=== PATIENT | male | born 1960 | race African-American/Black ===

== ENCOUNTER 2016-12-04 10:56 | Inpatient (IN) | payer OTHER ==
[2016-12-04 12:54] VITALS: BMI 26.4
--- NOTE | 2016-12-04 16:31 | HP ---
[id number]: Allergies Allergy/AdvReac Type Severity Reaction Status Date / Time No Known Allergies Allergy Verified 12/04/16 13:53 History of Present Illness: 56 YEAS OLD MALE WITH LONG HISTORY OF ALCOHOL COCAINE NICOTINE DEPENDENCE HAS HYPERTENSION, DIABETES II, AMBULATE WITH CANE, AND SCHIZOPHRENIA IS ADMITTED TO REHAB Exam Limitations: No Limitations - Ebola screening Have you traveled outside of the country in the last 21 days: No Have you had contact with anyone from an Ebola affected area: No Have you been sick,other than usual withdrawal symptoms: No Do you have a fever: No - Review of Systems Constitutional: Weight Stable EENT: reports: Dental Problems (LOWER DENTURE MISSIONG) Respiratory: reports: No Symptoms reported Cardiac: reports: No Symptoms Reported GI: reports: No Symptoms Reported : reports: No Symptoms Reported Musculoskeletal: reports: No Symptoms Reported Integumentary: reports: No Symptoms Reported Neuro: reports: No Symptoms reported, Seizure (2011 HEAD TRAUMA) Endocrine: reports: No Symptoms Reported Hematology: reports: No Symptoms Reported Psychiatric: reports: Judgement Intact, Orientated x3, Anxious, Depressed Other Systems: Reviewed and Negative Patient History - Patient Medical History Hx Anemia: No Hx Asthma: No Hx Chronic Obstructive Pulmonary Disease (COPD): No Hx Cancer: No Hx Cardiac Disorders: No Hx Congestive Heart Failure: No Hx Hypertension: Yes Hx Hypercholesterolemia: Yes Hx Pacemaker: No HX Cerebrovascular Accident: No Hx Seizures: No Hx Dementia: No Hx Diabetes: Yes Hx Gastrointestinal Disorders: No Hx Liver Disease: No Hx Genitourinary Disorders: No Hx Sexually Transmitted Disorders: No Hx Renal Disease (ESRD): No Hx Thyroid Disease: No Hx Human Immunodeficiency Virus (HIV): No Hx Hepatitis C: No Hx Depression: No Hx Suicide Attempt: No Hx Bipolar Disorder: No Hx Schizophrenia: Yes (Bipolar) - Patient Surgical History Past Surgical History: Yes Hx Neurologic Surgery: Yes (1991 RODE INSERED CERVICAL SPINE) Other Surgical History: 1981 SKULL REPAIRED Anesthesia Reaction: No - PPD History Previous Implant?: Yes Documented Results: Negative w/o proof Implanted On Prior [facility] Admission?: No Date: 06/15/14 PPD to be Administered?: Yes - Smoking Cessation Smoking history: Current every day smoker Have you smoked in the past 12 months: Yes Aproximately how many cigarettes per day: 5 Cigars Per Day: 0 Hx Chewing Tobacco Use: No Initiated information on smoking cessation: Yes 'Breaking Loose' booklet given: 12/04/16 - Substance & Tx. History Hx Alcohol Use: Yes Hx Substance Use: Yes Substance Use Type: Alcohol, Cocaine Hx Substance Use Treatment: Yes - Substances Abused Cocaine Route: Smoking Frequency: 3-6 times per week Amount used: GRAM Age of first use: 21 Date of Last Use: 12/03/16 Alcohol Route: Oral Frequency: 3-6 times per week Amount used: [id number] Age of first use: 21 Date of Last Use: 12/04/16 Family Disease History - Family Disease History Family Disease History: Diabetes: Mother, Heart Disease: Father (), Mother, Other: Father, Brother (), Sister () Admission Physical Exam S - Vital Signs Vital Signs: Vital Signs - 24 hr 12/04/16 12:51 Temperature 97 F L Pulse Rate 65 Respiratory 20 Rate Blood Pressure 147/84 - Physical General Appearance: Yes: No Apparent Distress, Nourished, Appropriately Dressed HEENTM: Yes: Hearing grossly Normal, Normal ENT Inspection, Normocephalic, Normal Voice, Other (HISTORY OF SKULL [id number]) Respiratory: Yes: Chest Non-Tender, Lungs Clear, Normal Breath Sounds, No Respiratory Distress, No Accessory Muscle Use Neck: Yes: Supple, Trachea in good position Breast: Yes: Breasts Symetrical Cardiology: Yes: Regular Rhythm, S1, S2, Bradycardia Abdominal: Yes: Non Tender, Soft Genitourinary: Yes: Within Normal Limits Back: Yes: Normal Inspection Musculoskeletal: Yes: full range of Motion, Gait Steady Neurological: Yes: Fully Oriented, Alert, Motor Strength 5/5, Normal Mood/Affect , Normal Response Integumentary: Yes: Warm Lymphatic: Yes: Within Normal Limits - Diagnostic (1) Hyperlipidemia Current Visit: Yes Status: Chronic Qualifiers: Hyperlipidemia type: pure hypercholesterolemia Qualified Code(s): E78.00 - Pure hypercholesterolemia, unspecified; E78.0 - Pure hypercholesterolemia Comment: NO TREATMENT (2) Hypertension Current Visit: Yes Status: Chronic Qualifiers: Hypertension type: essential hypertension Qualified Code(s): I10 - Essential (primary) hypertension Comment: LISINOPRIL NORVASC (3) Nicotine dependence Current Visit: Yes Status: Acute Qualifiers: Nicotine product type: cigarettes Substance use status: in withdrawal Qualified Code(s): F17.213 - Nicotine dependence, cigarettes, with withdrawal (4) Alcohol dependence with uncomplicated withdrawal Current Visit: Yes Status: Acute (5) Cocaine dependence, uncomplicated Current Visit: Yes Status: Acute (6) Diabetes mellitus type II, controlled Current Visit: Yes Status: Chronic Qualifiers: Diabetes mellitus complication status: with neurologic complications Diabetes mellitus complication detail: with mononeuropathy Diabetes mellitus longterm insulin use: with rat exterminator use Qualified Code(s): E11.41 - Type 2 diabetes mellitus with diabetic mononeuropathy; Z79.4 - senior care (current) use of insulin Comment: METFORMIN 500 MG BID ON LANTUS UNABLE TO REMEMBER THE DOSEAGE BGM WITH INSULINE COVERAGE (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 Comment: UNABLE TO REMEMBER THE MEDICATION DILANTIN LEVEL PENDING BEGIN DILANTIN 100 MG (8) Use of cane as ambulatory aid Current Visit: Yes Status: Chronic Cleared for Admission [facility] - Detox or Rehab [facility] Level of Care: Observation Bed Detox Regimen/Protocol: Not Applicable Claeared for Rehab Admission: Yes S Breath Alcohol Content Breath Alcohol Content: 0 Vital Signs - Vital Signs Vital Signs Refused: No Temperature: 97 F Temperature Source: Oral Pulse Rate: 65 Respiratory Rate: 20 Blood Pressure: 147/84 BP Location: Left Arm Blood Pressure Position: Sitting - Height Height: 5 ft 6 in - Weight Weight: 164 lb Weight Measurement Method: Standing Scale Body Mass Index (BMI): 26.4 - Bowel Function Bowel Movement: Yes Urine Drug Screen - Results Drug Screen Negative: No Urine Drug Screen Results: NORMA-Cocaine, BAR-Barbiturates
[2016-12-04] MEDS ORDERED: NICOTINE POLACRILEX 2 MG GUM BC PRN (16:42)
[2016-12-04] MEDS ORDERED: MAGNESIUM CITRATE 300 ML BOTTLE PO PRN (16:42)
[2016-12-04] MEDS ORDERED: guaiFENesin/D-METHORPHAN HB 10 ML UNIT-DOSE CUPS PO PRN (16:42)
[2016-12-04] MEDS ORDERED: ACETAMINOPHEN 325 MG TABLET (FP) PO PRN (16:42)
[2016-12-04] MEDS ORDERED: P-EPHED 60MG/TRIPROLIDI 2.5MG TABLET PO PRN (16:42)
[2016-12-04] MEDS ORDERED: LOPERAMIDE HCL 2 MG CAPSULE PO PRN (16:42)
[2016-12-04] MEDS ORDERED: MAG HYDROX/AL HYDROX/SIMETH 30 ML UNIT-DOSE CUP PO PRN (16:42)
[2016-12-04] MEDS ORDERED: MENTHOL/PHENOL 1 EACH UD MM PRN (16:42)
[2016-12-04] MEDS ORDERED: MAGNESIUM HYDROX 2400MG/30ML ORAL SUSPENSION 30 ML CUP PO PRN (16:42)
--- NOTE | 2016-12-04 19:43 | PN ---
[facility] Progress Note Note: Psychiatry Attending's speech communication instructor note : Called to enter order for Abilify. Chart reviewed.Met briefly with the patient. History taken.Mr Dmitry berman confirmed that he is on abilify 5 mg/day. States that he is diagnosed with Schizophrenia.On abilify since 2014. Gets his psychiatric outpatient services at the [facility] clinic. Denies history of adverse events from that drug.Eager to resume medication. Intervention : Abilify 5 mg po daily.Ordered. Side effects/benefits discussed with patient. He is in agreement with careplan.
[2016-12-04] MEDS: THIAMINE HCL 100 MG TABLET (FP) PO SCH (21:03)
[2016-12-04] MEDS: amLODIPine BESYLATE 5 MG TABLET (FP) PO SCH (21:03)
[2016-12-04] MEDS: INSULIN SLIDING SCALE (NOVOLOG) 1 VIAL SQ SCH (21:06)
[2016-12-04] MEDS ORDERED: INSULIN (NOVOLOG) ASPART 100 UNITS/ML 10ML VIAL ONE (22:01)
[2016-12-04 22:28] LABS: URINE APPEARANCE CLEAR; URINE BILIRUBIN NEGATIVE (NEGATIVE); URINE BLOOD NEGATIVE (NEGATIVE); URINE COLOR YELLOW; URINE GLUCOSE (UA) 3+ (NEGATIVE); URINE KETONE NEGATIVE (NEGATIVE); URINE LEUK ESTERASE NEGATIVE (NEGATIVE); URINE NITRITE NEGATIVE (NEGATIVE); URINE PROTEIN NEGATIVE (NEGATIVE); URINE UROBILINOGEN 2.0 E.U/dl E.U./dl (0.2-1.0)
[2016-12-05] MEDS: metFORMIN HCL 500 MG TABLET (FP) PO SCH ×2 (07:06→16:48)
[2016-12-05] MEDS: INSULIN SLIDING SCALE (NOVOLOG) 1 VIAL SQ SCH ×4 (07:09→21:29)
[2016-12-05] MEDS: NICOTINE 14 MG/24 HOURS TOPICAL PATCH TD SCH (10:03)
[2016-12-05] MEDS: amLODIPine BESYLATE 5 MG TABLET (FP) PO SCH (10:03)
[2016-12-05] MEDS: LISINOPRIL 5 MG TABLET (FP) PO SCH (10:04)
[2016-12-05] MEDS: PRENATAL VITAMINS W/ FOLIC ACID TABLET (FP) PO SCH (10:04)
[2016-12-05] MEDS: ARIPiprazole 5 MG TABLET (FP) PO SCH (10:04)
[2016-12-05] MEDS: PHENYTOIN NA EXTENDED 100 MG CAPSULE (FP) PO SCH (10:04)
[2016-12-05 10:13] LABS: MCH 24.8 pg (25.7-33.7); MCHC 30.9 g/dl (32.0-35.9); MEAN CELL VOLUME 80.2 fl (80-96); PLATELET COUNT 235 K/MM3 (134-434); RDW 15.5 % (11.9-15.9); WHITE BLOOD COUNT 9.4 K/mm3 (4.0-10.0)
[2016-12-05 10:30] LABS: ALBUMIN 3.7 g/dl (3.4-5.0); ALK PHOS 170 U/L (45-117); ANION GAP 9 (8-16); BILIRUBIN,TOTAL 0.4 mg/dL (0.2-1.0); CALCIUM 9.3 mg/dL (8.5-10.1); CO2 29 mmol/L (21-32); COCKROFT - GAULT 108.48; CREATININE 0.8 mg/dL (0.7-1.3); GLUCOSE,RANDOM 281 mg/dL (74-106); SGOT/AST 12 U/L (15-37); SGPT/ALT 20 U/L (12-78); TOT PROT 7.5 g/dl (6.4-8.2)
--- NOTE | 2016-12-05 16:09 | EKG ---
Test Reason : Blood Pressure : / mmHG Vent. Rate : 069 BPM Atrial Rate : 069 BPM P-R Int : 120 ms QRS Dur : 086 ms QT Int : 386 ms P-R-T Axes : 052 059 057 degrees QTc Int : 413 ms NORMAL SINUS RHYTHM NORMAL ECG NO PREVIOUS ECGS AVAILABLE Confirmed by TERRI DOCKERY MD ([id number]) on 12/05/2016 4:08:57 PM Referred By: Confirmed By:TERRI DOCKERY MD
[2016-12-05] MEDS ORDERED: INSULIN (NOVOLOG) ASPART 100 UNITS/ML 10ML VIAL ONE ×2 (16:48→21:28)
[2016-12-05] MEDS: THIAMINE HCL 100 MG TABLET (FP) PO SCH (21:28)
[2016-12-05] MEDS: diphenhydrAMINE HCL 50 MG CAPSULE PO PRN (21:28)
[2016-12-05] MEDS: hydrOXYzine PAMOATE 50 MG CAPSULE (FP) PO PRN (23:40)
[2016-12-06] MEDS: metFORMIN HCL 500 MG TABLET (FP) PO SCH ×2 (06:26→16:33)
[2016-12-06] MEDS: INSULIN SLIDING SCALE (NOVOLOG) 1 VIAL SQ SCH ×4 (06:27→21:49)
[2016-12-06] MEDS: PRENATAL VITAMINS W/ FOLIC ACID TABLET (FP) PO SCH (09:55)
[2016-12-06] MEDS: LISINOPRIL 5 MG TABLET (FP) PO SCH (09:55)
[2016-12-06] MEDS: NICOTINE 14 MG/24 HOURS TOPICAL PATCH TD SCH (09:55)
[2016-12-06] MEDS: ARIPiprazole 5 MG TABLET (FP) PO SCH (09:55)
[2016-12-06] MEDS: amLODIPine BESYLATE 5 MG TABLET (FP) PO SCH (09:55)
[2016-12-06] MEDS: PHENYTOIN NA EXTENDED 100 MG CAPSULE (FP) PO SCH (09:55)
[2016-12-06] MEDS ORDERED: INSULIN (NOVOLOG) ASPART 100 UNITS/ML 10ML VIAL ONE ×3 (11:22→21:48)
[2016-12-06] MEDS: THIAMINE HCL 100 MG TABLET (FP) PO SCH (21:47)
[2016-12-06] MEDS: hydrOXYzine PAMOATE 50 MG CAPSULE (FP) PO PRN (21:47)
[2016-12-07] MEDS: diphenhydrAMINE HCL 50 MG CAPSULE PO PRN ×2 (00:24→21:03)
[2016-12-07] MEDS: INSULIN SLIDING SCALE (NOVOLOG) 1 VIAL SQ SCH ×4 (07:09→21:03)
[2016-12-07] MEDS ORDERED: INSULIN (NOVOLOG) ASPART 100 UNITS/ML 10ML VIAL ONE ×4 (07:10→22:23)
[2016-12-07] MEDS: metFORMIN HCL 500 MG TABLET (FP) PO SCH ×2 (07:10→17:01)
--- NOTE | 2016-12-07 07:42 | HP ---
Psychiatrist Admission - Data Date of interview: 12/07/16 Admission source: Friend(Casey Kulkarni) Identifying data: This is the second [facility] admission for this 56 years old single Black male, unemployed on SSI, homeless Medical History: Significant for HTN, Hyperlipidemia, type 2 DM and neurosurgery (frature cervical spine & repair of skull). Smokes 5 cigarettes daily Psychiatric History: Reports history of Schizophrenia diagnosed at age 21 and has had 3 previous psychiatric hospitalizations all at [facility]. Last one was in 2012 for hearing voices. Reports that he attended [facility] for psychiatric services up to 2 months ago and he was prescribed Abilify 5 mg po HS and Benadryl 50 mg po HS. Reports sleeping poorly and requests to have Seroquel ordered. Denies history of suicidal/homicidal attempt Physical/Sexual Abuse/Trauma History: Denies history of physical/sexual abuse.Denies history of DV relationship Additional Comment: Reports history of multiple arrests including 2 felony convictions. Just completed probation on 10/12/16 Vital Signs: Vital Signs - 24 hr 12/06/16 12/07/16 12/07/16 10:30 03:30 07:08 Temperature 97.4 F L Pulse Rate 82 82 Respiratory 18 18 18 Rate Blood Pressure 126/88 137/91 Allergies/Adverse Reactions: Allergies Allergy/AdvReac Type Severity Reaction Status Date / Time No Known Allergies Allergy Verified 12/04/16 13:53 Date of last physical exam: 12/04/16 Concur with the findings of this exam: Yes - Substance Abuse/Tx History Hx Alcohol Use: Yes Hx Substance Use: Yes Substance Use Type: Alcohol (Started drinking alcohol at age 21, consumes 4x 40oz of beer 3-6 times weekly.Last drink on 12/04/16), Cocaine (Started smoking crack cocaine at age 21, consumes one gram 3-6 times weekly. Last smoked on ) Hx Substance Use Treatment: Yes ( one inpt rehab @ [facility]) - Admission Criteria Previous failed treatment: No Poor recovery environment: Yes Comorbidities: Yes Lacks judgement: Yes Mental Status Exam - Mental Status Exam Alert and Oriented to: Time, Place, Person Cognitive Function: Fair Patient Appearance: Well Groomed Mood: Hopeful, Euthymic Patient Behavior: Cooperative Speech Pattern: Clear Voice Loudness: Normal Thought Process: Intact Thought Disorder: Not Present Hallucinations: Denies Suicidal Ideation: Denies Homicidal Ideation: Denies Insight/Judgement: Fair Sleep: Poorly Appetite: Good Muscle strength/Tone: Normal Gait/Station: Normal Psychiatric Findings - Problem List ([place] 1, 2,3) (1) Alcohol dependence with uncomplicated withdrawal Current Visit: Yes Status: Acute (2) Cocaine dependence, uncomplicated Current Visit: Yes Status: Acute (3) Nicotine dependence Current Visit: Yes Status: Acute Qualifiers: Nicotine product type: cigarettes Substance use status: in withdrawal Qualified Code(s): F17.213 - Nicotine dependence, cigarettes, with withdrawal (4) Schizophrenia, undifferentiated type, subchronic Current Visit: No Status: Acute (5) Diabetes mellitus type II, controlled Current Visit: Yes Status: Chronic Qualifiers: Diabetes mellitus complication status: with neurologic complications Diabetes mellitus complication detail: with mononeuropathy Diabetes mellitus long-term insulin use: with terminal gauger supervisor use Qualified Code(s): 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 - Type 2 diabetes mellitus with diabetic mononeuropathy; Z79.4 - continuous churn buttermaker (current) use of insulin Comment: METFORMIN 500 MG BID ON LANTUS UNABLE TO REMEMBER THE DOSEAGE BGM WITH INSULINE COVERAGE (6) Hyperlipidemia Current Visit: Yes Status: Chronic Qualifiers: Hyperlipidemia type: pure hypercholesterolemia Qualified Code(s): E78.00 - Pure hypercholesterolemia, unspecified; E78.0 - Pure hypercholesterolemia Comment: NO TREATMENT (7) Hypertension Current Visit: Yes Status: Chronic Qualifiers: Hypertension type: essential hypertension Qualified Code(s): I10 - Essential (primary) hypertension Comment: LISINOPRIL NORVASC - Initial Treatment Plan Initial Treatment Plan: 1) Continue Abilify 10 mg po daily. 2) Start Seroquel 100 mg po HS. 3) Monitor progress
[2016-12-07] MEDS: PHENYTOIN NA EXTENDED 100 MG CAPSULE (FP) PO SCH (10:27)
[2016-12-07] MEDS: LISINOPRIL 5 MG TABLET (FP) PO SCH (10:27)
[2016-12-07] MEDS: amLODIPine BESYLATE 5 MG TABLET (FP) PO SCH (10:27)
[2016-12-07] MEDS: ARIPiprazole 5 MG TABLET (FP) PO SCH (10:27)
[2016-12-07] MEDS: NICOTINE 14 MG/24 HOURS TOPICAL PATCH TD SCH (10:28)
[2016-12-07] MEDS: PRENATAL VITAMINS W/ FOLIC ACID TABLET (FP) PO SCH (10:28)
[2016-12-07] MEDS: THIAMINE HCL 100 MG TABLET (FP) PO SCH (21:03)
[2016-12-07] MEDS: QUEtiapine FUMARATE 100 MG TABLET (FP) PO SCH (21:03)
[2016-12-08] MEDS: INSULIN SLIDING SCALE (NOVOLOG) 1 VIAL SQ SCH ×3 (07:11→23:38)
[2016-12-08] MEDS: metFORMIN HCL 500 MG TABLET (FP) PO SCH ×2 (07:11→16:48)
[2016-12-08] MEDS ORDERED: INSULIN (NOVOLOG) ASPART 100 UNITS/ML 10ML VIAL ONE ×2 (07:14→11:33)
[2016-12-08] MEDS: ARIPiprazole 5 MG TABLET (FP) PO SCH (10:34)
[2016-12-08] MEDS: LISINOPRIL 5 MG TABLET (FP) PO SCH (10:34)
[2016-12-08] MEDS: PHENYTOIN NA EXTENDED 100 MG CAPSULE (FP) PO SCH (10:34)
[2016-12-08] MEDS: PRENATAL VITAMINS W/ FOLIC ACID TABLET (FP) PO SCH (10:34)
[2016-12-08] MEDS: amLODIPine BESYLATE 5 MG TABLET (FP) PO SCH (10:35)
[2016-12-08] MEDS: NICOTINE 14 MG/24 HOURS TOPICAL PATCH TD SCH (10:35)
[2016-12-08] MEDS: THIAMINE HCL 100 MG TABLET (FP) PO SCH (21:45)
[2016-12-08] MEDS: QUEtiapine FUMARATE 100 MG TABLET (FP) PO SCH (21:45)
[2016-12-08] MEDS: hydrOXYzine PAMOATE 50 MG CAPSULE (FP) PO PRN (21:45)
[2016-12-09] MEDS: metFORMIN HCL 500 MG TABLET (FP) PO SCH ×2 (07:13→16:58)
[2016-12-09] MEDS: INSULIN SLIDING SCALE (NOVOLOG) 1 VIAL SQ SCH ×2 (07:13→16:57)
[2016-12-09] MEDS: PRENATAL VITAMINS W/ FOLIC ACID TABLET (FP) PO SCH (09:46)
[2016-12-09] MEDS: ARIPiprazole 5 MG TABLET (FP) PO SCH (09:46)
[2016-12-09] MEDS: amLODIPine BESYLATE 5 MG TABLET (FP) PO SCH (09:46)
[2016-12-09] MEDS: NICOTINE 14 MG/24 HOURS TOPICAL PATCH TD SCH (09:46)
[2016-12-09] MEDS: LISINOPRIL 5 MG TABLET (FP) PO SCH (09:46)
[2016-12-09] MEDS: PHENYTOIN NA EXTENDED 100 MG CAPSULE (FP) PO SCH (09:46)
--- NOTE | 2016-12-09 11:02 | PN ---
Psychiatric Progress Note Vital Signs: Vital Signs Period Temp Pulse Resp BP Sys/Cabrera Pulse Ox Last 24 Hr 98.9 F 113-118 18-20 113-122/67-78 Date of Session: 12/09/16 Chief Complaint:: Insomnia HPI: Patient addressing Alcohol and Cocaine Dependence comorbid with Nicotine Dependence comorbid with Nicotine Dependence and Schizophrenia, Undifferentiated type ROS: Type 2 DM, HTN, Hyperlipidemia Current Medications: Active Medications Generic Name Dose Route Start Last Admin Trade Name Freq PRN Reason Stop Dose Admin Acetaminophen 650 mg 12/04/16 16:42 Tylenol - PO Q4H PRN PAIN Al Hydroxide/Mg Hydroxide 30 ml 12/04/16 16:42 Mylanta Oral Suspension - PO Q6H PRN DYSPEPSIA Amlodipine Besylate 5 mg 12/04/16 17:00 12/09/16 09:46 Norvasc - PO 5 mg DAILY MARTHA Administration Aripiprazole 5 mg 12/05/16 10:00 12/09/16 09:46 Abilify PO 5 mg DAILY MARTHA Administration Diphenhydramine HCl 50 mg 12/04/16 16:42 12/07/16 21:03 Benadryl - PO 50 mg HSMR1 PRN Administration INSOMNIA Eucalyptus/Menthol/Phenol/Sorbitol 1 each 12/04/16 16:42 Cepastat Lozenge - MM Q4H PRN SORE THROAT Guaifenesin 10 ml 12/04/16 16:42 Robitussin Dm - PO Q6H PRN COUGH Hydroxyzine Pamoate 50 mg 12/04/16 16:42 12/08/16 21:45 Vistaril - PO 50 mg Q4H PRN Administration AGITATION Ibuprofen 400 mg 12/04/16 16:42 Motrin - PO Q6H PRN SEVERE PAIN Insulin Aspart 1 vial 12/08/16 16:30 12/09/16 07:13 Novolog Vial Sliding Scale - SQ Not Given [facility] Protocol Lisinopril 5 mg 12/05/16 10:00 12/09/16 09:46 Prinivil PO 5 mg DAILY MARTHA Administration Loperamide HCl 4 mg 12/04/16 16:42 Imodium - PO Q6H PRN DIARRHEA Magnesium Citrate 300 ml 12/04/16 16:42 Citroma - PO Q48H PRN CONSTIPATION Magnesium Hydroxide 30 ml 12/04/16 16:42 Milk Of Magnesia - PO DAILY PRN CONSTIPATION Metformin HCl 500 mg 12/05/16 07:00 12/09/16 07:13 Glucophage - PO 500 mg BID@0700,1630 MARTHA Administration Nicotine 14 mg 12/05/16 10:00 12/09/16 09:46 Nicoderm Patch - TD Not Given DAILY MARTHA Nicotine Polacrilex 2 mg 12/04/16 16:42 Nicorette Gum - BC Q2H PRN NICOTINE REPLACEMENT RX Phenytoin Sodium 100 mg 12/05/16 10:00 12/09/16 09:46 Dilantin - PO 100 mg DAILY MARTHA Administration Multivit/Folic Acid/Iron 1 tab 12/05/16 10:00 12/09/16 09:46 Vitamins ([facility]) - PO 1 tab DAILY MARTHA Administration Pseudoephedrine/Triprolidine 1 combo 12/04/16 16:42 Actifed - PO TID PRN NASAL CONGESTION Quetiapine Fumarate 100 mg 12/07/16 22:00 12/08/16 21:45 Seroquel - PO 100 mg HS MARTHA Administration Thiamine HCl 100 mg 12/04/16 22:00 12/08/16 21:45 Vitamin B1 - PO 100 mg HS MARTHA Administration Current Side Effect: No Lab tests ordered: Yes Lab tests reviewed: Yes Provider note:: Patient continue to report experiencing difficulty to sleep despite taking Seroqurel 100 mg at bedtime. Last night at nursing round sleep monitoring, he was awake at 0:30, 1:30, 2:30 & 5:30; he was asleep only at 3:30 , 4:30 Total face to face time:: 25 Mental Status Exam - Mental Status Exam Alert and Oriented to: Time, Place, Person Cognitive Function: Fair Patient Appearance: Well Groomed Mood: Hopeful, Euthymic Affect: Blunted Patient Behavior: Cooperative Speech Pattern: Clear, Artificially Ventilated Thought Process: Intact Thought Disorder: Not Present Hallucinations: Denies Suicidal Ideation: Denies Homicidal Ideation: Denies Insight/Judgement: Fair Sleep: Poorly Appetite: Good Muscle strength/Tone: Normal Gait/Station: Normal Psychiatric Treatment Plan - Problem List (1) Alcohol dependence with uncomplicated withdrawal Current Visit: Yes (2) Cocaine dependence, uncomplicated Current Visit: Yes (3) Nicotine dependence Current Visit: Yes Qualifiers: Nicotine product type: cigarettes Substance use status: in withdrawal Qualified Code(s): F17.213 - Nicotine dependence, cigarettes, with withdrawal (4) Schizophrenia, undifferentiated type, subchronic Current Visit: No (5) Diabetes mellitus type II, controlled Current Visit: Yes Qualifiers: Diabetes mellitus complication status: with neurologic complications Diabetes mellitus complication detail: with mononeuropathy Diabetes mellitus ad terminal makeup operator insulin use: with custodial use Qualified Code(s): 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 - Type 2 diabetes mellitus with diabetic mononeuropathy; Z79.4 - parts counterman (current) use of insulin Comment: METFORMIN 500 MG BID ON LANTUS UNABLE TO REMEMBER THE DOSEAGE BGM WITH INSULINE COVERAGE (6) Hyperlipidemia Current Visit: Yes Qualifiers: Hyperlipidemia type: pure hypercholesterolemia Qualified Code(s): E78.00 - Pure hypercholesterolemia, unspecified; E78.0 - Pure hypercholesterolemia Comment: NO TREATMENT (7) Hypertension Current Visit: Yes Qualifiers: Hypertension type: essential hypertension Qualified Code(s): I10 - Essential (primary) hypertension Comment: LISINOPRIL NORVASC Initial treatment plan: 1) Discontinue Seroquel 100 mg po HS. 2) Start Seroquel 200 mg po HS. 3) Monitor progress
[2016-12-09] MEDS ORDERED: PT OWN MED DRAWER 7, Y5N ONE (19:16)
[2016-12-09] MEDS: THIAMINE HCL 100 MG TABLET (FP) PO SCH (21:19)
[2016-12-09] MEDS: QUEtiapine FUMARATE 100 MG TABLET (FP) PO SCH (21:19)
[2016-12-09] MEDS: QUEtiapine FUMARATE 200 MG TABLET PO SCH (21:21)
[2016-12-10] MEDS: INSULIN SLIDING SCALE (NOVOLOG) 1 VIAL SQ SCH ×2 (06:02→16:53)
[2016-12-10] MEDS ORDERED: INSULIN (NOVOLOG) ASPART 100 UNITS/ML 10ML VIAL ONE ×2 (06:03→16:51)
[2016-12-10] MEDS: metFORMIN HCL 500 MG TABLET (FP) PO SCH ×2 (06:03→16:52)
[2016-12-10] MEDS: hydrOXYzine PAMOATE 50 MG CAPSULE (FP) PO PRN ×2 (09:46→21:23)
[2016-12-10] MEDS: LISINOPRIL 5 MG TABLET (FP) PO SCH (09:46)
[2016-12-10] MEDS: ARIPiprazole 5 MG TABLET (FP) PO SCH (09:46)
[2016-12-10] MEDS: PRENATAL VITAMINS W/ FOLIC ACID TABLET (FP) PO SCH (09:46)
[2016-12-10] MEDS: PHENYTOIN NA EXTENDED 100 MG CAPSULE (FP) PO SCH (09:47)
[2016-12-10] MEDS: amLODIPine BESYLATE 5 MG TABLET (FP) PO SCH (09:47)
[2016-12-10] MEDS: NICOTINE 14 MG/24 HOURS TOPICAL PATCH TD SCH (09:47)
[2016-12-10] MEDS: QUEtiapine FUMARATE 200 MG TABLET PO SCH (21:23)
[2016-12-10] MEDS: THIAMINE HCL 100 MG TABLET (FP) PO SCH (21:23)
[2016-12-11] MEDS ORDERED: INSULIN (NOVOLOG) ASPART 100 UNITS/ML 10ML VIAL ONE ×2 (07:09→16:44)
[2016-12-11] MEDS: metFORMIN HCL 500 MG TABLET (FP) PO SCH ×2 (07:09→16:45)
[2016-12-11] MEDS: INSULIN SLIDING SCALE (NOVOLOG) 1 VIAL SQ SCH ×2 (07:10→16:48)
[2016-12-11] MEDS: amLODIPine BESYLATE 5 MG TABLET (FP) PO SCH (10:11)
[2016-12-11] MEDS: PHENYTOIN NA EXTENDED 100 MG CAPSULE (FP) PO SCH (10:11)
[2016-12-11] MEDS: NICOTINE 14 MG/24 HOURS TOPICAL PATCH TD SCH (10:11)
[2016-12-11] MEDS: PRENATAL VITAMINS W/ FOLIC ACID TABLET (FP) PO SCH (10:11)
[2016-12-11] MEDS: LISINOPRIL 5 MG TABLET (FP) PO SCH (10:11)
[2016-12-11] MEDS: ARIPiprazole 5 MG TABLET (FP) PO SCH (10:11)
[2016-12-11] MEDS: hydrOXYzine PAMOATE 50 MG CAPSULE (FP) PO PRN (21:24)
[2016-12-11] MEDS: QUEtiapine FUMARATE 200 MG TABLET PO SCH (21:24)
[2016-12-11] MEDS: THIAMINE HCL 100 MG TABLET (FP) PO SCH (21:24)
[2016-12-12] MEDS: metFORMIN HCL 500 MG TABLET (FP) PO SCH ×2 (07:20→16:50)
[2016-12-12] MEDS ORDERED: INSULIN (NOVOLOG) ASPART 100 UNITS/ML 10ML VIAL ONE ×2 (07:20→17:02)
[2016-12-12] MEDS: INSULIN SLIDING SCALE (NOVOLOG) 1 VIAL SQ SCH ×2 (07:20→16:52)
[2016-12-12] MEDS: PRENATAL VITAMINS W/ FOLIC ACID TABLET (FP) PO SCH (09:56)
[2016-12-12] MEDS: ARIPiprazole 5 MG TABLET (FP) PO SCH (09:56)
[2016-12-12] MEDS: amLODIPine BESYLATE 5 MG TABLET (FP) PO SCH (09:56)
[2016-12-12] MEDS: PHENYTOIN NA EXTENDED 100 MG CAPSULE (FP) PO SCH (09:56)
[2016-12-12] MEDS: LISINOPRIL 5 MG TABLET (FP) PO SCH (09:56)
[2016-12-12] MEDS: NICOTINE 14 MG/24 HOURS TOPICAL PATCH TD SCH (09:57)
[2016-12-12] MEDS: IBUPROFEN 400 MG TABLET (FP) PO PRN (12:05)
[2016-12-12] MEDS: QUEtiapine FUMARATE 200 MG TABLET PO SCH (21:45)
[2016-12-12] MEDS: diphenhydrAMINE HCL 50 MG CAPSULE PO PRN (21:45)
[2016-12-12] MEDS: THIAMINE HCL 100 MG TABLET (FP) PO SCH (21:45)
[2016-12-13] MEDS: metFORMIN HCL 500 MG TABLET (FP) PO SCH ×2 (07:16→17:00)
[2016-12-13] MEDS: INSULIN SLIDING SCALE (NOVOLOG) 1 VIAL SQ SCH ×2 (07:16→17:01)
[2016-12-13] MEDS: ARIPiprazole 5 MG TABLET (FP) PO SCH (09:55)
[2016-12-13] MEDS: PRENATAL VITAMINS W/ FOLIC ACID TABLET (FP) PO SCH (09:55)
[2016-12-13] MEDS: LISINOPRIL 5 MG TABLET (FP) PO SCH (09:55)
[2016-12-13] MEDS: amLODIPine BESYLATE 5 MG TABLET (FP) PO SCH (09:56)
[2016-12-13] MEDS: PHENYTOIN NA EXTENDED 100 MG CAPSULE (FP) PO SCH (09:56)
[2016-12-13] MEDS: NICOTINE 14 MG/24 HOURS TOPICAL PATCH TD SCH (09:57)
[2016-12-13] MEDS ORDERED: INSULIN (NOVOLOG) ASPART 100 UNITS/ML 10ML VIAL ONE (17:10)
[2016-12-13] MEDS: diphenhydrAMINE HCL 50 MG CAPSULE PO PRN (21:20)
[2016-12-13] MEDS: THIAMINE HCL 100 MG TABLET (FP) PO SCH (21:20)
[2016-12-13] MEDS: QUEtiapine FUMARATE 200 MG TABLET PO SCH (21:20)
[2016-12-14] MEDS ORDERED: INSULIN (NOVOLOG) ASPART 100 UNITS/ML 10ML VIAL ONE ×2 (06:14→17:06)
[2016-12-14] MEDS: metFORMIN HCL 500 MG TABLET (FP) PO SCH ×2 (06:15→16:52)
[2016-12-14] MEDS: INSULIN SLIDING SCALE (NOVOLOG) 1 VIAL SQ SCH ×2 (07:15→16:54)
[2016-12-14] MEDS: NICOTINE 14 MG/24 HOURS TOPICAL PATCH TD SCH (09:50)
[2016-12-14] MEDS: PRENATAL VITAMINS W/ FOLIC ACID TABLET (FP) PO SCH (09:50)
[2016-12-14] MEDS: PHENYTOIN NA EXTENDED 100 MG CAPSULE (FP) PO SCH (09:50)
[2016-12-14] MEDS: LISINOPRIL 5 MG TABLET (FP) PO SCH (09:50)
[2016-12-14] MEDS: amLODIPine BESYLATE 5 MG TABLET (FP) PO SCH (09:50)
[2016-12-14] MEDS: ARIPiprazole 5 MG TABLET (FP) PO SCH (09:50)
[2016-12-14] MEDS ORDERED: PT OWN MED DRAWER 7, Y5N ONE (14:21)
[2016-12-14] MEDS: diphenhydrAMINE HCL 50 MG CAPSULE PO PRN (21:22)
[2016-12-14] MEDS: QUEtiapine FUMARATE 200 MG TABLET PO SCH (21:22)
[2016-12-14] MEDS: THIAMINE HCL 100 MG TABLET (FP) PO SCH (21:22)
[2016-12-15] MEDS: metFORMIN HCL 500 MG TABLET (FP) PO SCH ×2 (07:11→16:30)
[2016-12-15] MEDS ORDERED: INSULIN (NOVOLOG) ASPART 100 UNITS/ML 10ML VIAL ONE ×2 (07:12→16:30)
[2016-12-15] MEDS: INSULIN SLIDING SCALE (NOVOLOG) 1 VIAL SQ SCH ×2 (07:12→16:31)
[2016-12-15] MEDS: LISINOPRIL 5 MG TABLET (FP) PO SCH (09:59)
[2016-12-15] MEDS: amLODIPine BESYLATE 5 MG TABLET (FP) PO SCH (09:59)
[2016-12-15] MEDS: PRENATAL VITAMINS W/ FOLIC ACID TABLET (FP) PO SCH (09:59)
[2016-12-15] MEDS: NICOTINE 14 MG/24 HOURS TOPICAL PATCH TD SCH (09:59)
[2016-12-15] MEDS: ARIPiprazole 5 MG TABLET (FP) PO SCH (09:59)
[2016-12-15] MEDS: PHENYTOIN NA EXTENDED 100 MG CAPSULE (FP) PO SCH (09:59)
[2016-12-15] MEDS: hydrOXYzine PAMOATE 50 MG CAPSULE (FP) PO PRN (21:46)
[2016-12-15] MEDS: QUEtiapine FUMARATE 200 MG TABLET PO SCH (21:46)
[2016-12-15] MEDS: THIAMINE HCL 100 MG TABLET (FP) PO SCH (21:46)
[2016-12-16] MEDS: metFORMIN HCL 500 MG TABLET (FP) PO SCH ×2 (07:12→16:38)
[2016-12-16] MEDS ORDERED: INSULIN (NOVOLOG) ASPART 100 UNITS/ML 10ML VIAL ONE ×2 (07:12→16:38)
[2016-12-16] MEDS: INSULIN SLIDING SCALE (NOVOLOG) 1 VIAL SQ SCH ×2 (07:12→16:39)
[2016-12-16] MEDS: ARIPiprazole 5 MG TABLET (FP) PO SCH (10:07)
[2016-12-16] MEDS: PHENYTOIN NA EXTENDED 100 MG CAPSULE (FP) PO SCH (10:07)
[2016-12-16] MEDS: amLODIPine BESYLATE 5 MG TABLET (FP) PO SCH (10:07)
[2016-12-16] MEDS: LISINOPRIL 5 MG TABLET (FP) PO SCH (10:07)
[2016-12-16] MEDS: PRENATAL VITAMINS W/ FOLIC ACID TABLET (FP) PO SCH (10:07)
[2016-12-16] MEDS: NICOTINE 14 MG/24 HOURS TOPICAL PATCH TD SCH (10:08)
[2016-12-16] MEDS: hydrOXYzine PAMOATE 50 MG CAPSULE (FP) PO PRN (22:10)
[2016-12-16] MEDS: THIAMINE HCL 100 MG TABLET (FP) PO SCH (22:10)
[2016-12-16] MEDS: QUEtiapine FUMARATE 200 MG TABLET PO SCH (22:10)
[2016-12-17] MEDS: INSULIN SLIDING SCALE (NOVOLOG) 1 VIAL SQ SCH ×2 (07:05→16:34)
[2016-12-17] MEDS ORDERED: INSULIN (NOVOLOG) ASPART 100 UNITS/ML 10ML VIAL ONE ×2 (07:05→16:32)
[2016-12-17] MEDS: metFORMIN HCL 500 MG TABLET (FP) PO SCH ×2 (07:06→16:33)
[2016-12-17] MEDS: PRENATAL VITAMINS W/ FOLIC ACID TABLET (FP) PO SCH (09:58)
[2016-12-17] MEDS: PHENYTOIN NA EXTENDED 100 MG CAPSULE (FP) PO SCH (09:59)
[2016-12-17] MEDS: ARIPiprazole 5 MG TABLET (FP) PO SCH (09:59)
[2016-12-17] MEDS: LISINOPRIL 5 MG TABLET (FP) PO SCH (09:59)
[2016-12-17] MEDS: amLODIPine BESYLATE 5 MG TABLET (FP) PO SCH (09:59)
[2016-12-17] MEDS: NICOTINE 14 MG/24 HOURS TOPICAL PATCH TD SCH (09:59)
--- NOTE | 2016-12-17 14:44 | PN ---
Psychiatric Progress Note Vital Signs: Vital Signs Period Temp Pulse Resp BP Sys/Cabrera Pulse Ox Last 24 Hr 98.2 F 112-119 18-20 102-103/71-71 Date of Session: 12/17/16 Chief Complaint:: " I want something to help me with craving for alcohol" HPI: Patient addressing Alcohol and Cocaine Dependence comorbid with Nicotine Dependence and Undifferentiated Schizophrenia ROS: Type 2 DM, HTN, Hyperlipidemia Current Medications: Active Medications Generic Name Dose Route Start Last Admin Trade Name Freq PRN Reason Stop Dose Admin Acetaminophen 650 mg 12/04/16 16:42 Tylenol - PO Q4H PRN PAIN Al Hydroxide/Mg Hydroxide 30 ml 12/04/16 16:42 Mylanta Oral Suspension - PO Q6H PRN DYSPEPSIA Amlodipine Besylate 5 mg 12/04/16 17:00 12/17/16 09:59 Norvasc - PO 5 mg DAILY MARTHA Administration Aripiprazole 5 mg 12/05/16 10:00 12/17/16 09:59 Abilify PO 5 mg DAILY MARTHA Administration Diphenhydramine HCl 50 mg 12/04/16 16:42 12/14/16 21:22 Benadryl - PO 50 mg HSMR1 PRN Administration INSOMNIA Eucalyptus/Menthol/Phenol/Sorbitol 1 each 12/04/16 16:42 Cepastat Lozenge - MM Q4H PRN SORE THROAT Guaifenesin 10 ml 12/04/16 16:42 Robitussin Dm - PO Q6H PRN COUGH Hydroxyzine Pamoate 50 mg 12/04/16 16:42 12/16/16 22:10 Vistaril - PO 50 mg Q4H PRN Administration AGITATION Ibuprofen 400 mg 12/04/16 16:42 12/12/16 12:05 Motrin - PO 400 mg Q6H PRN Administration SEVERE PAIN Insulin Aspart 1 vial 12/08/16 16:30 12/17/16 07:05 Novolog Vial Sliding Scale - SQ 2 units BIDAC MARTHA Administration Protocol Lisinopril 5 mg 12/05/16 10:00 12/17/16 09:59 Prinivil PO 5 mg DAILY MARTHA Administration Loperamide HCl 4 mg 12/04/16 16:42 Imodium - PO Q6H PRN DIARRHEA Magnesium Citrate 300 ml 12/04/16 16:42 Citroma - PO Q48H PRN CONSTIPATION Magnesium Hydroxide 30 ml 12/04/16 16:42 Milk Of Magnesia - PO DAILY PRN CONSTIPATION Metformin HCl 500 mg 12/05/16 07:00 12/17/16 07:06 Glucophage - PO 500 mg BID@0700,1630 MARTHA Administration Nicotine 14 mg 12/05/16 10:00 12/17/16 09:59 Nicoderm Patch - TD 14 mg DAILY MARTHA Administration Nicotine Polacrilex 2 mg 12/04/16 16:42 12/15/16 10:00 Nicorette Gum - BC 2 mg Q2H PRN Administration NICOTINE REPLACEMENT RX Phenytoin Sodium 100 mg 12/05/16 10:00 12/17/16 09:59 Dilantin - PO 100 mg DAILY MARTHA Administration Multivit/Folic Acid/Iron 1 tab 12/05/16 10:00 12/17/16 09:58 Vitamins ([facility]) - PO 1 tab DAILY MARTHA Administration Pseudoephedrine/Triprolidine 1 combo 12/04/16 16:42 Actifed - PO TID PRN NASAL CONGESTION Quetiapine Fumarate 200 mg 12/09/16 22:00 12/16/16 22:10 Seroquel - PO 200 mg HS MARTHA Administration Thiamine HCl 100 mg 12/04/16 22:00 12/16/16 22:10 Vitamin B1 - PO 100 mg HS MARTHA Administration Medication(s) Change(s): Start Naltrexone 50 mg po daily Current Side Effect: No Lab tests ordered: Yes Lab tests reviewed: Yes Provider note:: Patient requests medication to help minimize his craving for alcohol. Two medications to that effect, Naltrexone and Acamprosate were discussed with patient. He has opted to take The opoid antagonist Naltrexone due to convenience of administration making compliance easier. His LFT'S are WNL. He said that he has never used any type of opiate medication like percocet , oxycontin etc. He was warned against using any of these substances with Naltrexone Total face to face time:: 25 Mental Status Exam - Mental Status Exam Alert and Oriented to: Time, Place, Person Cognitive Function: Fair Patient Appearance: Well Groomed Mood: Hopeful, Euthymic Affect: Appropriate Patient Behavior: Cooperative Speech Pattern: Clear Voice Loudness: Normal Thought Process: Intact Thought Disorder: Not Present Hallucinations: Denies Suicidal Ideation: Denies Homicidal Ideation: Denies Insight/Judgement: Poor Sleep: Fair Appetite: Good Muscle strength/Tone: Normal Gait/Station: Normal Psychiatric Treatment Plan - Problem List (1) Alcohol dependence with uncomplicated withdrawal Current Visit: Yes (2) Cocaine dependence, uncomplicated Current Visit: Yes (3) Nicotine dependence Current Visit: Yes Qualifiers: Nicotine product type: cigarettes Substance use status: in withdrawal Qualified Code(s): F17.213 - Nicotine dependence, cigarettes, with withdrawal (4) Schizophrenia, undifferentiated type, subchronic Current Visit: No (5) Diabetes mellitus type II, controlled Current Visit: Yes Qualifiers: Diabetes mellitus complication status: with neurologic complications Diabetes mellitus complication detail: with mononeuropathy Diabetes mellitus half-way insulin use: with tire changer use Qualified Code(s): E11.41 - Type 2 diabetes mellitus with diabetic mononeuropathy; Z79.4 - material damage adjuster (current) use of insulin Comment: METFORMIN 500 MG BID ON LANTUS UNABLE TO REMEMBER THE DOSEAGE BGM WITH INSULINE COVERAGE (6) Hyperlipidemia Current Visit: Yes Qualifiers: Hyperlipidemia type: pure hypercholesterolemia Qualified Code(s): E78.00 - Pure hypercholesterolemia, unspecified; E78.0 - Pure hypercholesterolemia Comment: NO TREATMENT (7) Hypertension Current Visit: Yes Qualifiers: Hypertension type: essential hypertension Qualified Code(s): I10 - Essential (primary) hypertension Comment: LISINOPRIL NORVASC Initial treatment plan: 1) Start Naltrexone 50 mg po daily. 2) Monitor progress
[2016-12-17] MEDS: THIAMINE HCL 100 MG TABLET (FP) PO SCH (21:03)
[2016-12-17] MEDS: hydrOXYzine PAMOATE 50 MG CAPSULE (FP) PO PRN (21:04)
[2016-12-17] MEDS: QUEtiapine FUMARATE 200 MG TABLET PO SCH (21:04)
[2016-12-18] MEDS ORDERED: INSULIN (NOVOLOG) ASPART 100 UNITS/ML 10ML VIAL ONE ×2 (06:53→17:28)
[2016-12-18] MEDS: INSULIN SLIDING SCALE (NOVOLOG) 1 VIAL SQ SCH ×2 (06:53→16:50)
[2016-12-18] MEDS: metFORMIN HCL 500 MG TABLET (FP) PO SCH ×2 (06:53→16:49)
[2016-12-18] MEDS ORDERED: PT OWN MED DRAWER 7, Y5N ONE (08:59)
[2016-12-18] MEDS: PRENATAL VITAMINS W/ FOLIC ACID TABLET (FP) PO SCH (10:09)
[2016-12-18] MEDS: LISINOPRIL 5 MG TABLET (FP) PO SCH (10:09)
[2016-12-18] MEDS: amLODIPine BESYLATE 5 MG TABLET (FP) PO SCH (10:09)
[2016-12-18] MEDS: NALTREXONE HCL 50 MG TABLET PO SCH (10:10)
[2016-12-18] MEDS: ARIPiprazole 5 MG TABLET (FP) PO SCH (10:10)
[2016-12-18] MEDS: PHENYTOIN NA EXTENDED 100 MG CAPSULE (FP) PO SCH (10:10)
[2016-12-18] MEDS: NICOTINE 14 MG/24 HOURS TOPICAL PATCH TD SCH (10:11)
[2016-12-18] MEDS: THIAMINE HCL 100 MG TABLET (FP) PO SCH (21:39)
[2016-12-18] MEDS: QUEtiapine FUMARATE 200 MG TABLET PO SCH (21:39)
[2016-12-18] MEDS: diphenhydrAMINE HCL 50 MG CAPSULE PO PRN (21:39)
[2016-12-19] MEDS: metFORMIN HCL 500 MG TABLET (FP) PO SCH ×2 (06:11→16:27)
[2016-12-19] MEDS ORDERED: INSULIN (NOVOLOG) ASPART 100 UNITS/ML 10ML VIAL ONE ×2 (07:21→16:27)
[2016-12-19] MEDS: INSULIN SLIDING SCALE (NOVOLOG) 1 VIAL SQ SCH ×2 (07:22→16:29)
[2016-12-19] MEDS ORDERED: PT OWN MED DRAWER 7, Y5N ONE (08:51)
[2016-12-19] MEDS: NALTREXONE HCL 50 MG TABLET PO SCH (09:46)
[2016-12-19] MEDS: NICOTINE 14 MG/24 HOURS TOPICAL PATCH TD SCH (09:46)
[2016-12-19] MEDS: ARIPiprazole 5 MG TABLET (FP) PO SCH (09:46)
[2016-12-19] MEDS: PHENYTOIN NA EXTENDED 100 MG CAPSULE (FP) PO SCH (09:46)
[2016-12-19] MEDS: PRENATAL VITAMINS W/ FOLIC ACID TABLET (FP) PO SCH (09:46)
[2016-12-19] MEDS: amLODIPine BESYLATE 5 MG TABLET (FP) PO SCH (09:46)
[2016-12-19] MEDS: LISINOPRIL 5 MG TABLET (FP) PO SCH (09:46)
[2016-12-19] MEDS: hydrOXYzine PAMOATE 50 MG CAPSULE (FP) PO PRN (21:12)
[2016-12-19] MEDS: QUEtiapine FUMARATE 200 MG TABLET PO SCH (21:12)
[2016-12-19] MEDS: THIAMINE HCL 100 MG TABLET (FP) PO SCH (21:12)
[2016-12-19] MEDS ORDERED: COLLOIDAL OATMEAL 1 BAR EACH TP PRN (21:26)
[2016-12-20] MEDS ORDERED: INSULIN (NOVOLOG) ASPART 100 UNITS/ML 10ML VIAL ONE ×2 (05:55→16:32)
[2016-12-20] MEDS: metFORMIN HCL 500 MG TABLET (FP) PO SCH ×2 (06:22→16:32)
[2016-12-20] MEDS: INSULIN SLIDING SCALE (NOVOLOG) 1 VIAL SQ SCH ×2 (06:23→16:34)
[2016-12-20] MEDS ORDERED: PT OWN MED DRAWER 7, Y5N ONE (08:45)
[2016-12-20] MEDS: PHENYTOIN NA EXTENDED 100 MG CAPSULE (FP) PO SCH (09:49)
[2016-12-20] MEDS: NALTREXONE HCL 50 MG TABLET PO SCH (09:49)
[2016-12-20] MEDS: NICOTINE 14 MG/24 HOURS TOPICAL PATCH TD SCH (09:50)
[2016-12-20] MEDS: LISINOPRIL 5 MG TABLET (FP) PO SCH (09:50)
[2016-12-20] MEDS: amLODIPine BESYLATE 5 MG TABLET (FP) PO SCH (09:50)
[2016-12-20] MEDS: PRENATAL VITAMINS W/ FOLIC ACID TABLET (FP) PO SCH (09:50)
[2016-12-20] MEDS: ARIPiprazole 5 MG TABLET (FP) PO SCH (09:50)
[2016-12-20] MEDS: THIAMINE HCL 100 MG TABLET (FP) PO SCH (21:20)
[2016-12-20] MEDS: hydrOXYzine PAMOATE 50 MG CAPSULE (FP) PO PRN (21:20)
[2016-12-20] MEDS: QUEtiapine FUMARATE 200 MG TABLET PO SCH (21:20)
[2016-12-21] MEDS: metFORMIN HCL 500 MG TABLET (FP) PO SCH ×2 (07:02→17:01)
[2016-12-21] MEDS ORDERED: INSULIN (NOVOLOG) ASPART 100 UNITS/ML 10ML VIAL ONE ×2 (07:02→22:31)
[2016-12-21] MEDS: INSULIN SLIDING SCALE (NOVOLOG) 1 VIAL SQ SCH ×2 (07:02→17:02)
[2016-12-21] MEDS ORDERED: PT OWN MED DRAWER 7, Y5N ONE (08:47)
[2016-12-21] MEDS: NALTREXONE HCL 50 MG TABLET PO SCH (10:03)
[2016-12-21] MEDS: LISINOPRIL 5 MG TABLET (FP) PO SCH (10:03)
[2016-12-21] MEDS: PRENATAL VITAMINS W/ FOLIC ACID TABLET (FP) PO SCH (10:03)
[2016-12-21] MEDS: amLODIPine BESYLATE 5 MG TABLET (FP) PO SCH (10:03)
[2016-12-21] MEDS: PHENYTOIN NA EXTENDED 100 MG CAPSULE (FP) PO SCH (10:03)
[2016-12-21] MEDS: ARIPiprazole 5 MG TABLET (FP) PO SCH (10:03)
[2016-12-21] MEDS: NICOTINE 14 MG/24 HOURS TOPICAL PATCH TD SCH (10:04)
[2016-12-21] MEDS: diphenhydrAMINE HCL 50 MG CAPSULE PO PRN (21:12)
[2016-12-21] MEDS: THIAMINE HCL 100 MG TABLET (FP) PO SCH (21:12)
[2016-12-21] MEDS: QUEtiapine FUMARATE 200 MG TABLET PO SCH (21:12)
[2016-12-22] MEDS: metFORMIN HCL 500 MG TABLET (FP) PO SCH ×2 (07:30→16:34)
[2016-12-22] MEDS: INSULIN SLIDING SCALE (NOVOLOG) 1 VIAL SQ SCH ×2 (07:30→16:35)
[2016-12-22] MEDS ORDERED: INSULIN (NOVOLOG) ASPART 100 UNITS/ML 10ML VIAL ONE ×2 (07:30→16:33)
[2016-12-22] MEDS ORDERED: PT OWN MED DRAWER 7, Y5N ONE (08:43)
[2016-12-22] MEDS: ARIPiprazole 5 MG TABLET (FP) PO SCH (10:01)
[2016-12-22] MEDS: PHENYTOIN NA EXTENDED 100 MG CAPSULE (FP) PO SCH (10:01)
[2016-12-22] MEDS: NALTREXONE HCL 50 MG TABLET PO SCH (10:01)
[2016-12-22] MEDS: LISINOPRIL 5 MG TABLET (FP) PO SCH (10:01)
[2016-12-22] MEDS: PRENATAL VITAMINS W/ FOLIC ACID TABLET (FP) PO SCH (10:01)
[2016-12-22] MEDS: amLODIPine BESYLATE 5 MG TABLET (FP) PO SCH (10:01)
[2016-12-22] MEDS: NICOTINE 14 MG/24 HOURS TOPICAL PATCH TD SCH (10:02)
[2016-12-22] MEDS: IBUPROFEN 400 MG TABLET (FP) PO PRN (20:14)
[2016-12-22] MEDS: THIAMINE HCL 100 MG TABLET (FP) PO SCH (21:15)
[2016-12-22] MEDS: hydrOXYzine PAMOATE 50 MG CAPSULE (FP) PO PRN (21:15)
[2016-12-22] MEDS: QUEtiapine FUMARATE 200 MG TABLET PO SCH (21:15)
[2016-12-23] MEDS: INSULIN SLIDING SCALE (NOVOLOG) 1 VIAL SQ SCH ×2 (07:10→17:18)
[2016-12-23] MEDS: metFORMIN HCL 500 MG TABLET (FP) PO SCH ×2 (07:10→16:36)
[2016-12-23] MEDS ORDERED: INSULIN (NOVOLOG) ASPART 100 UNITS/ML 10ML VIAL ONE (07:10)
[2016-12-23] MEDS ORDERED: PT OWN MED DRAWER 7, Y5N ONE (08:50)
[2016-12-23] MEDS: NALTREXONE HCL 50 MG TABLET PO SCH (10:00)
[2016-12-23] MEDS: ARIPiprazole 5 MG TABLET (FP) PO SCH (10:00)
[2016-12-23] MEDS: PRENATAL VITAMINS W/ FOLIC ACID TABLET (FP) PO SCH (10:00)
[2016-12-23] MEDS: LISINOPRIL 5 MG TABLET (FP) PO SCH (10:00)
[2016-12-23] MEDS: amLODIPine BESYLATE 5 MG TABLET (FP) PO SCH (10:00)
[2016-12-23] MEDS: PHENYTOIN NA EXTENDED 100 MG CAPSULE (FP) PO SCH (10:00)
[2016-12-23] MEDS: NICOTINE 14 MG/24 HOURS TOPICAL PATCH TD SCH (10:01)
--- NOTE | 2016-12-23 11:04 | PN ---
Psychiatric Progress Note Vital Signs: Vital Signs Period Temp Pulse Resp BP Sys/Cabrera Pulse Ox Last 24 Hr 98.3 F-98.5 F 93-103 18-20 116-118/76-84 Date of Session: 12/23/16 Chief Complaint:: Discharge Note HPI: Patient addressing Alcohol and Cocaine Dependence comorbid with Nicotine Dependence and Schizophrenia Undifferentiated type ROS: Type 2 DM, HTN, Hyperlipidemia were medically managed Current Medications: Active Medications Generic Name Dose Route Start Last Admin Trade Name Freq PRN Reason Stop Dose Admin Acetaminophen 650 mg 12/04/16 16:42 Tylenol - PO Q4H PRN PAIN Al Hydroxide/Mg Hydroxide 30 ml 12/04/16 16:42 Mylanta Oral Suspension - PO Q6H PRN DYSPEPSIA Amlodipine Besylate 5 mg 12/04/16 17:00 12/23/16 10:00 Norvasc - PO 5 mg DAILY MARTHA Administration Aripiprazole 5 mg 12/05/16 10:00 12/23/16 10:00 Abilify PO 5 mg DAILY MARTHA Administration Colloidal Oatmeal 1 applic 12/19/16 21:26 12/19/16 22:00 Aveeno Soap - TP 1 applic DAILY PRN Administration HYGEINE Diphenhydramine HCl 50 mg 12/04/16 16:42 12/21/16 21:12 Benadryl - PO 50 mg HSMR1 PRN Administration INSOMNIA Eucalyptus/Menthol/Phenol/Sorbitol 1 each 12/04/16 16:42 Cepastat Lozenge - MM Q4H PRN SORE THROAT Guaifenesin 10 ml 12/04/16 16:42 Robitussin Dm - PO Q6H PRN COUGH Hydroxyzine Pamoate 50 mg 12/04/16 16:42 12/22/16 21:15 Vistaril - PO 50 mg Q4H PRN Administration AGITATION Ibuprofen 400 mg 12/04/16 16:42 12/22/16 20:14 Motrin - PO 400 mg Q6H PRN Administration SEVERE PAIN Insulin Aspart 1 vial 12/08/16 16:30 12/23/16 07:10 Novolog Vial Sliding Scale - SQ 2 units BIDAC MARTHA Administration Protocol Lisinopril 5 mg 12/05/16 10:00 12/23/16 10:00 Prinivil PO 5 mg DAILY MARTHA Administration Loperamide HCl 4 mg 12/04/16 16:42 Imodium - PO Q6H PRN DIARRHEA Magnesium Citrate 300 ml 12/04/16 16:42 Citroma - PO Q48H PRN CONSTIPATION Magnesium Hydroxide 30 ml 12/04/16 16:42 Milk Of Magnesia - PO DAILY PRN CONSTIPATION Metformin HCl 500 mg 12/05/16 07:00 12/23/16 07:10 Glucophage - PO 500 mg BID@0700,1630 MARTHA Administration Naltrexone HCl 50 mg 12/18/16 10:00 12/23/16 10:00 Revia - PO 50 mg DAILY MARTHA Administration Nicotine 14 mg 12/05/16 10:00 12/23/16 10:01 Nicoderm Patch - TD 14 mg DAILY MARTHA Administration Nicotine Polacrilex 2 mg 12/04/16 16:42 12/15/16 10:00 Nicorette Gum - BC 2 mg Q2H PRN Administration NICOTINE REPLACEMENT RX Phenytoin Sodium 100 mg 12/05/16 10:00 12/23/16 10:00 Dilantin - PO 100 mg DAILY MARTHA Administration Multivit/Folic Acid/Iron 1 tab 12/05/16 10:00 12/23/16 10:00 Vitamins (Sjr) - PO 1 tab DAILY MARTHA Administration Pseudoephedrine/Triprolidine 1 combo 12/04/16 16:42 Actifed - PO TID PRN NASAL CONGESTION Quetiapine Fumarate 200 mg 12/09/16 22:00 12/22/16 21:15 Seroquel - PO 200 mg HS MARTHA Administration Thiamine HCl 100 mg 12/04/16 22:00 12/22/16 21:15 Vitamin B1 - PO 100 mg HS MARTHA Administration Current Side Effect: No Lab tests ordered: Yes Lab tests reviewed: Yes Provider note:: Patient will complete this program on 12/24/16. He has met his treatment goals and will continue to address his [facility] Told curriculum writer that from his participation in this program, he has learned to identify his triggers and has acquired skills to deal with them. He responded well to Abilify 10 mg po daily, Seroquel 200 mg po HS and Natrexone 50 mg po daily. Scripts for 30 days supply of these medications will be electronicaly transmitted to [facility] at [address] [place] [id number]. He is stable for dischsarge on 12/24/16 Total face to face time:: 35 Mental Status Exam - Mental Status Exam Alert and Oriented to: Time, Place, Person Cognitive Function: Fair Patient Appearance: Well Groomed Mood: Hopeful, Euthymic Affect: Appropriate Patient Behavior: Cooperative Speech Pattern: Clear Voice Loudness: Normal Thought Process: Intact, Goal Oriented Thought Disorder: Not Present Hallucinations: Denies Suicidal Ideation: Denies Homicidal Ideation: Denies Insight/Judgement: Fair Sleep: Fair Appetite: Good Muscle strength/Tone: Normal Gait/Station: Normal Psychiatric Treatment Plan - Problem List (1) Alcohol dependence with uncomplicated withdrawal Current Visit: Yes (2) Cocaine dependence, uncomplicated Current Visit: Yes (3) Nicotine dependence Current Visit: Yes Qualifiers: Nicotine product type: cigarettes Substance use status: in withdrawal Qualified Code(s): F17.213 - Nicotine dependence, cigarettes, with withdrawal (4) Schizophrenia, undifferentiated type, subchronic Current Visit: No (5) Diabetes mellitus type II, controlled Current Visit: Yes Qualifiers: Diabetes mellitus complication status: with neurologic complications Diabetes mellitus complication detail: with mononeuropathy Diabetes mellitus termite control representative insulin use: with termite control representative use Qualified Code(s): E11.41 - Type 2 diabetes mellitus with diabetic mononeuropathy; Z79.4 - [facility] (current) use of insulin Comment: METFORMIN 500 MG BID ON LANTUS UNABLE TO REMEMBER THE DOSEAGE BGM WITH INSULINE COVERAGE (6) Hyperlipidemia Current Visit: Yes Qualifiers: Hyperlipidemia type: pure hypercholesterolemia Qualified Code(s): E78.00 - Pure hypercholesterolemia, unspecified; E78.0 - Pure hypercholesterolemia Comment: NO TREATMENT (7) Hypertension Current Visit: Yes Qualifiers: Hypertension type: essential hypertension Qualified Code(s): I10 - Essential (primary) hypertension Comment: LISINOPRIL NORVASC Initial treatment plan: Patient is discharged tomorrow and referred to [facility]PD for outpatient treatment
[2016-12-23] MEDS: THIAMINE HCL 100 MG TABLET (FP) PO SCH (21:09)
[2016-12-23] MEDS: hydrOXYzine PAMOATE 50 MG CAPSULE (FP) PO PRN (21:10)
[2016-12-23] MEDS: QUEtiapine FUMARATE 200 MG TABLET PO SCH (21:10)
[2016-12-24] MEDS: metFORMIN HCL 500 MG TABLET (FP) PO SCH (06:40)
[2016-12-24] MEDS ORDERED: INSULIN (NOVOLOG) ASPART 100 UNITS/ML 10ML VIAL ONE (06:42)
[2016-12-24] MEDS: INSULIN SLIDING SCALE (NOVOLOG) 1 VIAL SQ SCH (06:45)
[2016-12-24 06:47] VITALS: BP 128/82; PULSE 88; TEMP 98.6
[2016-12-24] MEDS ORDERED: PT OWN MED DRAWER 7, Y5N ONE (08:40)
== END 2016-12-24 09:00 | disposition home or self-care (01) | DRG 772 ==
LOC: YASAS 10:56 → Y3W 15:31
PROVIDERS: ADMIT Psychiatry & Neurology Psychiatry; ATTEND Psychiatry & Neurology Psychiatry
PROC: HZ42ZZZ Group Counseling for Substance Abuse Treatment, Cognitive-Behavioral (ICD-10-PCS; principal; 2016-12-04)
DX: F10.20 Alcohol dependence, uncomplicated (principal); F14.20 Cocaine dependence, uncomplicated; F17.210 Nicotine dependence, cigarettes, uncomplicated; F20.3 Undifferentiated schizophrenia; E78.5 Hyperlipidemia, unspecified; E11.41 Type 2 diabetes mellitus with diabetic mononeuropathy; I10 Essential (primary) hypertension; Z79.4 Long term (current) use of insulin; Z79.84 Long term (current) use of oral hypoglycemic drugs; R00.1 Bradycardia, unspecified; R56.1 Post traumatic seizures
CPT/HCPCS: 36415; 80053; 80185; 81003; 85027; 86593; 93005; 93010

== ENCOUNTER 2017-05-09 08:55 | Inpatient (IN) | payer OTHER ==
[2017-05-09 10:16] VITALS: BMI 25.8
--- NOTE | 2017-05-09 10:46 | HP ---
CIWA Score - CIWA Score Nausea/Vomitin (diarrhea) Muscle Tremors: 3 Anxiety: 4-Mod. Anxious/Guarded Agitation: 4-Moderately Restless Paroxysmal Sweats: 2 Orientation: 0-Oriented Tacttile Disturbances: 2-Mild Itch/Numbness/Burn Auditory Disturbances: 0-None Visual Disturbances: 0-None Headache: 1-Very Mild CIWA-Ar Total Score: 18 Admission ROS BHS - HPI Chief Complaint: Withdrawal sx. Allergies/Adverse Reactions: Allergies Allergy/AdvReac Type Severity Reaction Status Date / Time No Known Allergies Allergy Verified 05/09/17 09:05 History of Present Illness: 56 y/o man with a long hx. of alcoholism is admitted for detox. Pt. has been in previous Detox & Rehab denies significant sobriety. Exam Limitations: No Limitations - Ebola screening Have you traveled outside of the country in the last 21 days: No Have you had contact with anyone from an Ebola affected area: No Have you been sick,other than usual withdrawal symptoms: No Do you have a fever: No - Review of Systems Constitutional: Diaphoresis EENT: reports: No Symptoms Reported Respiratory: reports: Cough Cardiac: reports: No Symptoms Reported GI: reports: Nausea, Abdominal cramping : reports: Frequency Integumentary: reports: No Symptoms Reported Neuro: reports: Numbness, Seizure (last 04/2017), Tingling, Tremors Endocrine: reports: Increased Thirst, Increased Urine Hematology: reports: No Symptoms Reported Psychiatric: reports: Orientated x3 Other Systems: Reviewed and Negative Patient History - Patient Medical History Hx Anemia: No Hx Asthma: No Hx Chronic Obstructive Pulmonary Disease (COPD): No Hx Cancer: No Hx Cardiac Disorders: No Hx Congestive Heart Failure: No Hx Hypertension: Yes Hx Hypercholesterolemia: Yes Hx Pacemaker: No HX Cerebrovascular Accident: No Hx Seizures: No Hx Dementia: No Hx Diabetes: Yes Hx Gastrointestinal Disorders: No Hx Liver Disease: No Hx Genitourinary Disorders: No Hx Sexually Transmitted Disorders: No Hx Renal Disease (ESRD): No Hx Thyroid Disease: No Hx Human Immunodeficiency Virus (HIV): No Hx Hepatitis C: No Hx Depression: Yes Hx Suicide Attempt: No Hx Bipolar Disorder: No Hx Schizophrenia: Yes - Patient Surgical History Past Surgical History: Yes Hx Neurologic Surgery: Yes (1991 INSER CERVICAL SPINE) Hx Cataract Extraction: No Hx Cardiac Surgery: No Hx Lung Surgery: No Hx Breast Surgery: No Hx Breast Biopsy: No Hx Abdominal Surgery: No Hx Appendectomy: No Hx Cholecystectomy: No Hx Genitourinary Surgery: No Hx Section: No Hx Orthopedic Surgery: No Other Surgical History: 1982 SKULL REPAIRED Anesthesia Reaction: No - PPD History Previous Implant?: Yes Documented Results: Negative w/proof Date: 12/06/16 Results: 0 mm PPD to be Administered?: No - Smoking Cessation Smoking history: Current every day smoker Have you smoked in the past 12 months: Yes Aproximately how many cigarettes per day: 5 Cigars Per Day: 0 Hx Chewing Tobacco Use: No Initiated information on smoking cessation: Yes 'Breaking Loose' booklet given: 05/09/17 - Substance & Tx. History Hx Alcohol Use: Yes Hx Substance Use: Yes Substance Use Type: Alcohol, Cocaine Hx Substance Use Treatment: Yes (detox and rehab at [facility]. Last 11/2016) - Substances Abused Alcohol Route: Oral Frequency: Daily Amount used: BEER- 1 (6pack) Age of first use: 21 Date of Last Use: 05/08/17 Crack Route: Smoking Frequency: 3-6 times per week Amount used: 1gm Age of first use: 21 Date of Last Use: 05/08/17 Family Disease History - Family Disease History Family Disease History: Diabetes: Mother, Heart Disease: Father (), Mother, Other: Father, Brother (), Sister () Admission Physical Exam BHS - Vital Signs Vital Signs: Vital Signs - 24 hr 05/09/17 10:10 Temperature 97 F L Pulse Rate 84 Respiratory 20 Rate Blood Pressure 137/100 - Physical General Appearance: Yes: No Apparent Distress, Alcohol on Breath HEENTM: Yes: EOMI, Normal ENT Inspection, DAYNA Respiratory: Yes: Chest Non-Tender, Lungs Clear, No Respiratory Distress Neck: Yes: Supple, Other (surgical scar on right side of the neck) Cardiology: Yes: Regular Rate, S1, S2 Abdominal: Yes: Within Normal Limits Genitourinary: Yes: Within Normal Limits Back: Yes: Within Normal Limits Musculoskeletal: Yes: Within Normal Limits Extremities: Yes: Within Normal Limits Neurological: Yes: Fully Oriented, Alert Integumentary: Yes: Within Normal Limits Lymphatic: Yes: Within Normal Limits - Diagnostic (1) Alcohol dependence with uncomplicated withdrawal Current Visit: Yes Status: Acute (2) Cocaine dependence, uncomplicated Current Visit: Yes Status: Acute (3) Nicotine dependence Current Visit: Yes Status: Acute Qualifiers: Nicotine product type: cigarettes Substance use status: in withdrawal Qualified Code(s): F17.213 - Nicotine dependence, cigarettes, with withdrawal; F17.213 - Nicotine dependence, cigarettes, with withdrawal (4) Hyperlipidemia Current Visit: Yes Status: Chronic Qualifiers: Hyperlipidemia type: pure hypercholesterolemia Qualified Code(s): E78.00 - Pure hypercholesterolemia, unspecified; E78.00 - Pure hypercholesterolemia, unspecified; E78.00 - Pure hypercholesterolemia, unspecified; E78.0 - Pure hypercholesterolemia Comment: NO TREATMENT (5) Hypertension Current Visit: Yes Status: Chronic Qualifiers: Hypertension type: essential hypertension Qualified Code(s): I10 - Essential (primary) hypertension; I10 - Essential (primary) hypertension; I10 - Essential (primary) hypertension Comment: LISINOPRIL NORVASC (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 Comment: UNABLE TO REMEMBER THE MEDICATION DILANTIN LEVEL PENDING BEGIN DILANTIN 100 MG (7) Cocaine dependence Current Visit: No Status: Chronic (8) Diabetes mellitus type II, controlled Current Visit: No Status: Chronic Qualifiers: Diabetes mellitus complication status: with neurologic complications Diabetes mellitus complication detail: with mononeuropathy Diabetes mellitus halfway insulin use: with halfway use Qualified Code(s): E11.41 - Type 2 diabetes mellitus with diabetic mononeuropathy; E11.41 - Type 2 diabetes mellitus with diabetic mononeuropathy; E11.41 - Type 2 diabetes mellitus with diabetic mononeuropathy; E11.41 - Type 2 diabetes mellitus with diabetic mononeuropathy; Z79.4 - [facility] (current) use of insulin; Z79.4 - [facility] (current) use of insulin; Z79.4 - termite control service representative (current) use of insulin; Z79.4 - [facility] (current) use of insulin Comment: METFORMIN 500 MG BID ON LANTUS UNABLE TO REMEMBER THE DOSEAGE BGM WITH INSULINE COVERAGE Cleared for Admission BHS - Detox or Rehab S Level of Care: Medically Managed Detox Regimen/Protocol: Librium S Breath Alcohol Content Breath Alcohol Content: 0 Urine Drug Screen - Results Drug Screen Negative: No Urine Drug Screen Results: TCA-Tricyclic Antidepress
[2017-05-09] MEDS ORDERED: chlordiazePOXIDE HCL 25 MG CAPSULE PO ONE (11:17)
[2017-05-09] MEDS ORDERED: IBUPROFEN 400 MG TABLET (FP) PO PRN (11:17)
[2017-05-09] MEDS ORDERED: NICOTINE POLACRILEX 2 MG GUM BC PRN (11:17)
[2017-05-09] MEDS ORDERED: ACETAMINOPHEN 325 MG TABLET (FP) PO PRN (11:17)
[2017-05-09] MEDS ORDERED: hydrOXYzine PAMOATE 50 MG CAPSULE (FP) PO PRN (11:17)
[2017-05-09] MEDS ORDERED: MAGNESIUM HYDROX 2400MG/30ML ORAL SUSPENSION 30 ML CUP PO PRN (11:17)
[2017-05-09] MEDS ORDERED: LOPERAMIDE HCL 2 MG CAPSULE PO PRN (11:17)
[2017-05-09] MEDS ORDERED: chlordiazePOXIDE HCL 25 MG CAPSULE PO PRN (11:17)
[2017-05-09] MEDS ORDERED: guaiFENesin/D-METHORPHAN HB 10 ML UNIT-DOSE CUPS PO PRN (11:17)
[2017-05-09] MEDS ORDERED: MENTHOL/PHENOL 1 EACH UD MM PRN (11:17)
[2017-05-09] MEDS ORDERED: MAG HYDROX/AL HYDROX/SIMETH 30 ML UNIT-DOSE CUP PO PRN (11:17)
[2017-05-09] MEDS ORDERED: P-EPHED 60MG/TRIPROLIDI 2.5MG TABLET PO PRN (11:17)
[2017-05-09] MEDS ORDERED: MAGNESIUM CITRATE 300 ML BOTTLE PO PRN (11:17)
--- NOTE | 2017-05-09 11:35 | PN ---
BHS Progress Note Note: The H&P was done under my direct supervision and participation.
[2017-05-09] MEDS: NICOTINE 14 MG/24 HOURS TOPICAL PATCH TD SCH (13:08)
[2017-05-09] MEDS: LISINOPRIL 5 MG TABLET (FP) PO SCH (13:08)
[2017-05-09] MEDS: amLODIPine BESYLATE 5 MG TABLET (FP) PO SCH (13:08)
--- NOTE | 2017-05-09 16:25 | EKG ---
Test Reason : Blood Pressure : / mmHG Vent. Rate : 075 BPM Atrial Rate : 075 BPM P-R Int : 124 ms QRS Dur : 086 ms QT Int : 378 ms P-R-T Axes : 072 056 064 degrees QTc Int : 422 ms NORMAL SINUS RHYTHM NORMAL ECG WHEN COMPARED WITH ECG OF 04-DEC-2016 20:22, T WAVE INVERSION IN aVL CLINICAL CORRELATION IS RECOMMENDED Confirmed by JENNIFFER SAEZ MD ([id number]) on 05/09/2017 4:25:11 PM Referred By: Confirmed By:JENNIFFER SAEZ MD
[2017-05-09] MEDS ORDERED: INSULIN (NOVOLOG) ASPART 100 UNITS/ML 10ML VIAL ONE ×2 (16:58→23:09)
[2017-05-09] MEDS: metFORMIN HCL 500 MG TABLET (FP) PO SCH (17:46)
[2017-05-09] MEDS: chlordiazePOXIDE HCL 25 MG CAPSULE PO SCH ×2 (17:47→22:31)
[2017-05-09] MEDS: INSULIN SLIDING SCALE (NOVOLOG) 1 VIAL SQ SCH (17:49)
[2017-05-09] MEDS ORDERED: ATORVASTATIN CA 40 MG TABLET (FP) ONE (21:23)
[2017-05-09 21:47] LABS: URINE APPEARANCE CLEAR; URINE BILIRUBIN NEGATIVE (NEGATIVE); URINE BLOOD NEGATIVE (NEGATIVE); URINE COLOR LTYELLOW; URINE GLUCOSE (UA) 3+ (NEGATIVE); URINE KETONE NEGATIVE (NEGATIVE); URINE NITRITE NEGATIVE (NEGATIVE); URINE PROTEIN NEGATIVE (NEGATIVE); URINE UROBILINOGEN NEGATIVE mg/dL (0.2-1.0)
[2017-05-09] MEDS: THIAMINE HCL 100 MG TABLET (FP) PO SCH (22:31)
[2017-05-09] MEDS: ATORVASTATIN CA 80 MG TABLET (FP) PO SCH (22:32)
[2017-05-09] MEDS: diphenhydrAMINE HCL 50 MG CAPSULE PO PRN (22:32)
[2017-05-10] MEDS: chlordiazePOXIDE HCL 25 MG CAPSULE PO SCH ×4 (05:35→22:09)
[2017-05-10] MEDS: metFORMIN HCL 500 MG TABLET (FP) PO SCH ×2 (07:27→17:16)
[2017-05-10] MEDS: INSULIN SLIDING SCALE (NOVOLOG) 1 VIAL SQ SCH ×2 (07:28→17:16)
--- NOTE | 2017-05-10 10:06 | CONSULT ---
[facility] Psychiatric Consult - Data Date of interview: 05/10/17 (\) Admission source: [facility] Identifying data: Readmisssion to [facility] for this 56 y/o AA male seeking detox treatment on for alcohol and cocaine (crack) dependence.Patient is single without children,homeless,unemployed,disabled and supported on SSI benefits. Substance Abuse History: Discussed in this session.Report is confirmed by the patient. Smoking Cessation. Smoking history: Current every day smoker. Have you smoked in the past 12 months: Yes. Aproximately how many cigarettes per day : 5. Cigars Per Day: 0. Hx Chewing Tobacco Use: No. Initiated information on smoking cessation: Yes. 'Breaking Loose' booklet given: 05/09/17. - Substance & Tx. History. Hx Alcohol Use: Yes. Hx Substance Use: Yes. Substance Use Type : Alcohol, Cocaine. Hx Substance Use Treatment: Yes (detox and rehab at [facility]. Last 11/2016). - Substances Abused. Alcohol. Route: Oral. Frequency: Daily. Amount used: BEER- 1 (6pack). Age of first use: 21. Date of Last Use: 05/08/17. Crack. Route: Smoking. Frequency: 3-6 times per week. Amount used: 1gm. Age of first use: 21. 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 Psychiatric History: Diagnosed with Schizophrenia (age 21).Patient admits to multiple psychiatric hospitalizations (mostly at [facility]).Mr Dmitry berman indicates that he gets OPD psychiatric services at a clinic in [facility]Medications currently reported are : abilify 10 mg/day + seroquel 200 mg/hs + remeron 15 mg/hs + doxepin 50 mg/hs.Patient pledges adequate adherence to OPD care.He denies history of suicide attempts. Physical/Sexual Abuse/Trauma History: No reported history of abuse. Additional Comment: Urine Drug Screen Results: TCA-Tricyclic Antidepressant.Noted. Mental Status Exam - Mental Status Exam Alert and Oriented to: Time, Place, Person Cognitive Function: Grossly Intact Patient Appearance: Unkempt, Disheveled (short stature) Mood: Hopeful, Euthymic Affect: Appropriate, Normal Range Patient Behavior: Appropriate, Cooperative Speech Pattern: Clear Voice Loudness: Normal Thought Process: Goal Oriented Thought Disorder: Not Present Hallucinations: Denies Suicidal Ideation: Denies Homicidal Ideation: Denies Insight/Judgement: Poor Sleep: Poorly, Difficulty falling asleep Appetite: Good Gait/Station: Hemiparetic (unsteady gait) Psychiatric Findings - Problem List ([place] 1, 2,3) (1) Schizophrenia Current Visit: Yes Status: Chronic Qualifiers: Schizophrenia type: undifferentiated schizophrenia Qualified Code(s) : F20.3 - Undifferentiated schizophrenia; F20.3 - Undifferentiated schizophrenia ; F20.3 - Undifferentiated schizophrenia; F20.3 - Undifferentiated schizophrenia (2) Alcohol dependence with uncomplicated withdrawal Current Visit: Yes Status: Acute (3) Cocaine dependence, uncomplicated Current Visit: Yes Status: Acute (4) Nicotine dependence Current Visit: Yes Status: Acute Qualifiers: Nicotine product type: cigarettes Substance use status: in withdrawal Qualified Code(s): F17.213 - Nicotine dependence, cigarettes, with withdrawal; F17.213 - Nicotine dependence, cigarettes, with withdrawal (5) Diabetes mellitus Current Visit: Yes Status: Chronic (6) Hyperlipidemia Current Visit: No Status: Chronic Qualifiers: Hyperlipidemia type: pure hypercholesterolemia Qualified Code(s): E78.00 - Pure hypercholesterolemia, unspecified; E78.00 - Pure hypercholesterolemia, unspecified; E78.00 - Pure hypercholesterolemia, unspecified; E78.0 - Pure hypercholesterolemia Comment: NO TREATMENT (7) Hypertension Current Visit: Yes Status: Chronic Qualifiers: Hypertension type: essential hypertension Qualified Code(s): I10 - Essential (primary) hypertension; I10 - Essential (primary) hypertension; I10 - Essential (primary) hypertension Comment: LISINOPRIL NORVASC (8) Use of cane as ambulatory aid Current Visit: Yes Status: Chronic (9) Insomnia Current Visit: Yes Status: Acute - Initial Treatment Plan Initial Treatment Plan: Psychoeducation.Detoxification in progress.Medications reconciled with most recent pharmacy claims (05/06/17) at [facility] Consultant : abilify 10 mg po daily + doxepin 25 mg po hs (doses are temporarily reduced as caution for oversedation).Remeron is held.Side effects/benefits of these medications are discussed with the patient.Mr Dmitry berman agrees to follow this careplan.Cane is ordered.Falls precautions.Observation.NO scripts needed at discharge from [facility].
[2017-05-10] MEDS: NICOTINE 14 MG/24 HOURS TOPICAL PATCH TD SCH (10:39)
[2017-05-10] MEDS: ASPIRIN 81 MG CHEWABLE TABLETS PO SCH (10:39)
[2017-05-10] MEDS: amLODIPine BESYLATE 5 MG TABLET (FP) PO SCH (10:39)
[2017-05-10] MEDS: PRENATAL VITAMINS W/ FOLIC ACID TABLET (FP) PO SCH (10:39)
[2017-05-10] MEDS: LISINOPRIL 5 MG TABLET (FP) PO SCH (10:39)
[2017-05-10 10:40] LABS: MCH 24.4 pg (25.7-33.7); MCHC 30.7 g/dl (32.0-35.9); MEAN CELL VOLUME 79.3 fl (80-96); MEAN PLT VOLUME 9.8 fl (7.5-11.1); PLATELET COUNT 236 K/MM3 (134-434); RDW 15.8 % (11.9-15.9); WHITE BLOOD COUNT 7.5 K/mm3 (4.0-10.0)
[2017-05-10 11:00] LABS: ALBUMIN 3.2 g/dl (3.4-5.0); ALK PHOS 124 U/L (45-117); ANION GAP 10 (8-16); BILIRUBIN,TOTAL 0.4 mg/dL (0.2-1.0); CALCIUM 9.1 mg/dL (8.5-10.1); CO2 26 mmol/L (21-32); CREATININE 0.8 mg/dL (0.7-1.3); GLUCOSE,RANDOM 249 mg/dL (74-106); SGOT/AST 8 U/L (15-37); SGPT/ALT 20 U/L (12-78); TOT PROT 6.6 g/dl (6.4-8.2)
--- NOTE | 2017-05-10 11:43 | PN ---
[facility] CIWA - CIWA Score Nausea/Vomitin-No Nausea/No Vomiting Muscle Tremors: 4-Moderate,w/Arms Extend Anxiety: 4-Mod. Anxious/Guarded Agitation: 4-Moderately Restless Paroxysmal Sweats: 1-Minimal Palms Moist Orientation: 0-Oriented Tacttile Disturbances: 3-Moderate Itch/Numb/Burn Auditory Disturbances: 0-None Visual Disturbances: 0-None Headache: 0-None Present CIWA-Ar Total Score: 16 BHS Progress Note (SOAP) Subjective: ANXIETY,SWEATS,FATIGUE. Objective: 05/10/17 11:43 Vital Signs Temperature 96.5 F L 05/10/17 10:55 Pulse Rate 56 L 05/10/17 10:55 Respiratory Rate 18 05/10/17 10:55 Blood Pressure 100/53 05/10/17 10:55 O2 Sat by Pulse Oximetry (%) Laboratory Last Values WBC 7.5 K/mm3 (4.0-10.0) 05/10/17 07:30 RBC 5.46 M/mm3 (4.00-5.60) 05/10/17 07:30 Hgb 13.3 GM/dL (11.7-16.9) 05/10/17 07:30 Hct 43.3 % (35.4-49) 05/10/17 07:30 MCV 79.3 fl (80-96) L 05/10/17 07:30 MCH 24.4 pg (25.7-33.7) L 05/10/17 07:30 MCHC 30.7 g/dl (32.0-35.9) L 05/10/17 07:30 RDW 15.8 % (11.9-15.9) 05/10/17 07:30 Plt Count 236 K/MM3 (134-434) 05/10/17 07:30 MPV 9.8 fl (7.5-11.1) D 05/10/17 07:30 Sodium 139 mmol/L (136-145) 05/10/17 07:30 Potassium 4.1 mmol/L (3.5-5.1) 05/10/17 07:30 Chloride 103 mmol/L (98-107) 05/10/17 07:30 Carbon Dioxide 26 mmol/L (21-32) 05/10/17 07:30 Anion Gap 10 (8-16) 05/10/17 07:30 BUN 10 mg/dL (7-18) 05/10/17 07:30 Creatinine 0.8 mg/dL (0.7-1.3) 05/10/17 07:30 Creat Clearance w eGFR > 60 (>60) 05/10/17 07:30 POC Glucometer 235 UNITS (()) 05/10/17 05:34 Random Glucose 249 mg/dL (74-106) H 05/10/17 07:30 Calcium 9.1 mg/dL (8.5-10.1) 05/10/17 07:30 Total Bilirubin 0.4 mg/dL (0.2-1.0) 05/10/17 07:30 AST 8 U/L (15-37) L D 05/10/17 07:30 ALT 20 U/L (12-78) 05/10/17 07:30 Alkaline Phosphatase 124 U/L (45-117) H D 05/10/17 07:30 Total Protein 6.6 g/dl (6.4-8.2) 05/10/17 07:30 Albumin 3.2 g/dl (3.4-5.0) L 05/10/17 07:30 Urine Color Ltyellow 05/09/17 17:37 Urine Appearance Clear 05/09/17 17:37 Urine pH 5.0 (5.0-8.0) 05/09/17 17:37 Urine Protein Negative (NEGATIVE) 05/09/17 17:37 Urine Glucose (UA) 3+ (NEGATIVE) H 05/09/17 17:37 Urine Ketones Negative (NEGATIVE) 05/09/17 17:37 Urine Blood Negative (NEGATIVE) 05/09/17 17:37 Urine Nitrite Negative (NEGATIVE) 05/09/17 17:37 Urine Bilirubin Negative (NEGATIVE) 05/09/17 17:37 Urine Urobilinogen Negative mg/dL (0.2-1.0) 05/09/17 17:37 RPR Titer Nonreactive (NONREACTIVE) 05/10/17 07:30 Assessment: 05/10/17 11:43 WITHDRAWAL SX Plan: CONTINUE DETOX
[2017-05-10] MEDS: ARIPiprazole 10 MG TABLET PO SCH (12:29)
[2017-05-10 15:22] LABS: URINE LEUK ESTERASE Negative (NEGATIVE)
[2017-05-10] MEDS ORDERED: INSULIN (NOVOLOG) ASPART 100 UNITS/ML 10ML VIAL ONE (17:03)
[2017-05-10] MEDS ORDERED: DOXEPIN HCL 25 MG CAPSULE PO SCH (22:00)
[2017-05-10] MEDS: THIAMINE HCL 100 MG TABLET (FP) PO SCH (22:08)
[2017-05-10] MEDS: ATORVASTATIN CA 80 MG TABLET (FP) PO SCH (22:10)
[2017-05-11] MEDS: diphenhydrAMINE HCL 50 MG CAPSULE PO PRN (00:34)
[2017-05-11] MEDS: chlordiazePOXIDE HCL 25 MG CAPSULE PO SCH ×2 (06:00→10:49)
[2017-05-11] MEDS: metFORMIN HCL 500 MG TABLET (FP) PO SCH (06:03)
[2017-05-11] MEDS ORDERED: INSULIN (NOVOLOG) ASPART 100 UNITS/ML 10ML VIAL ONE (06:54)
[2017-05-11] MEDS: INSULIN SLIDING SCALE (NOVOLOG) 1 VIAL SQ SCH (07:06)
[2017-05-11 10:11] VITALS: BP 113/81; PULSE 116; TEMP 95.2
--- NOTE | 2017-05-11 10:46 | PN ---
[facility] CIWA - CIWA Score Nausea/Vomitin-Mild Nausea/No Vomiting Muscle Tremors: 5 Anxiety: 4-Mod. Anxious/Guarded Agitation: 3 Paroxysmal Sweats: 2 Orientation: 2-Disoriented Date<2 days Tacttile Disturbances: 3-Moderate Itch/Numb/Burn Auditory Disturbances: 0-None Visual Disturbances: 0-None Headache: 0-None Present CIWA-Ar Total Score: [address] [facility] Progress Note (SOAP) Subjective: Sweating, Anxious, Tremors. Pt. reporting numbness, tingling, weakness in right arm and right leg X 2 days. Pt. denies numbness, tingling, weakness in head / face and in left side of body. Pt. denies history of CVA. SEE FOLLOWING PROGRESS NOTE. Objective: PT. A & O X 2 (DISORIENTED ABOUT DAY / DATE). PT. OBSERVED AMBULATING ON UNIT. NO ACUTE DISTRESS. 05/11/17 10:42 Vital Signs Temperature 95.2 F L 05/11/17 10:10 Pulse Rate 116 H 05/11/17 10:10 Respiratory Rate 18 05/11/17 10:10 Blood Pressure 113/81 05/11/17 10:10 O2 Sat by Pulse Oximetry (%) Laboratory Tests 05/09/17 05/09/17 05/09/17 09:14 16:39 17:37 WBC RBC Hgb Hct MCV MCH MCHC RDW Plt Count MPV Sodium Potassium Chloride Carbon Dioxide Anion Gap BUN Creatinine Creat Clearance w eGFR POC Glucometer 236 319 Random Glucose Calcium Total Bilirubin AST ALT Alkaline Phosphatase Total Protein Albumin Urine Color Ltyellow Urine Appearance Clear Urine pH 5.0 Ur Specific [place] 1.015 Urine Protein Negative Urine Glucose (UA) 3+ H Urine Ketones Negative Urine Blood Negative Urine Nitrite Negative Urine Bilirubin Negative Urine Urobilinogen Negative Ur Leukocyte Esterase Negative RPR Titer 05/09/17 05/10/17 05/10/17 20:29 05:34 07:30 WBC 7.5 RBC 5.46 Hgb 13.3 Hct 43.3 MCV 79.3 L MCH 24.4 L MCHC 30.7 L RDW 15.8 Plt Count 236 MPV 9.8 D Sodium Potassium Chloride Carbon Dioxide Anion Gap BUN Creatinine Creat Clearance w eGFR POC Glucometer 189 235 Random Glucose Calcium Total Bilirubin AST ALT Alkaline Phosphatase Total Protein Albumin Urine Color Urine Appearance Urine pH Ur Specific [place] Urine Protein Urine Glucose (UA) Urine Ketones Urine Blood Urine Nitrite Urine Bilirubin Urine Urobilinogen Ur Leukocyte Esterase RPR Titer 05/10/17 05/10/17 05/10/17 07:30 07:30 16:53 WBC RBC Hgb Hct MCV MCH MCHC RDW Plt Count MPV Sodium 139 Potassium 4.1 Chloride 103 Carbon Dioxide 26 Anion Gap 10 BUN 10 Creatinine 0.8 Creat Clearance w eGFR > 60 POC Glucometer 214 Random Glucose 249 H Calcium 9.1 Total Bilirubin 0.4 AST 8 L D ALT 20 Alkaline Phosphatase 124 H D Total Protein 6.6 Albumin 3.2 L Urine Color Urine Appearance Urine pH Ur Specific [place] Urine Protein Urine Glucose (UA) Urine Ketones Urine Blood Urine Nitrite Urine Bilirubin Urine Urobilinogen Ur Leukocyte Esterase RPR Titer Nonreactive 05/11/17 06:02 WBC RBC Hgb Hct MCV MCH MCHC RDW Plt Count MPV Sodium Potassium Chloride Carbon Dioxide Anion Gap BUN Creatinine Creat Clearance w eGFR POC Glucometer 312 Random Glucose Calcium Total Bilirubin AST ALT Alkaline Phosphatase Total Protein Albumin Urine Color Urine Appearance Urine pH Ur Specific [place] Urine Protein Urine Glucose (UA) Urine Ketones Urine Blood Urine Nitrite Urine Bilirubin Urine Urobilinogen Ur Leukocyte Esterase RPR Titer LABS NOTED. 05/11/17 10:47 Assessment: 05/11/17 10:43 WITHDRAWAL SYMPTOMS. Plan: CONTINUE DETOX. PATIENT TO BE TAKEN VIA AMBULANCE TO [facility] ER FOR FURTHER EVALUATION. SEE FOLLOWING PROGRESS NOTE.
[2017-05-11] MEDS: PRENATAL VITAMINS W/ FOLIC ACID TABLET (FP) PO SCH (10:48)
[2017-05-11] MEDS: ASPIRIN 81 MG CHEWABLE TABLETS PO SCH (10:48)
[2017-05-11] MEDS: amLODIPine BESYLATE 5 MG TABLET (FP) PO SCH (10:48)
[2017-05-11] MEDS: LISINOPRIL 5 MG TABLET (FP) PO SCH (10:48)
[2017-05-11] MEDS: NICOTINE 14 MG/24 HOURS TOPICAL PATCH TD SCH (10:49)
[2017-05-11] MEDS: ARIPiprazole 10 MG TABLET PO SCH (10:49)
--- NOTE | 2017-05-11 10:55 | PN ---
[facility] Progress Note Note: Patient reporting sensations of Numbness and tingling and weakness in right arm and right leg X 2 days. Patient denies numbness, tingling, weakness in Face / Head and in Left arm and leg. Patient denies History of CVA. Pt. using can for assistance with ambulation (denies use of cane in past for assistance with ambulation) and appear to have difficulty with ambulation. Pt. reports history of seizures (non-compliant with medication; unable to recall name of medication ) and that he was treated for a Seizure at ER (pt. unable to recall name of hospital) in 04/2017. Patient to be taken to [facility] ER via ambulance for further evaluation. Report given to Dr. Fountain at [facility]. Jude Singletary NP
[2017-05-11] MEDS ORDERED: chlordiazePOXIDE 5 MG CAPSULE PO SCH (17:00)
[2017-05-12] MEDS ORDERED: chlordiazePOXIDE HCL 10 MG CAPSULE PO SCH (17:00)
--- NOTE | 2017-05-13 11:53 | DS ---
[facility] Detox Discharge Summary Admission Date: 05/09/17 Discharge Date: 05/11/17 - History Present History: Alcohol Dependence, Cocaine Dependence Additional Comments: PATIENT EARLIER TAKEN VIA AMBULANCE TO [facility] ER FOR EVALUATION FOR C/O WEAKNESS/NUMBNESS/TINGLING IN RIGHT ARM AND LEG. PATIENT LATER ADMITTED TO TELEMETRY UNIT AT [facility] FOR FURTHER EVALUATION. 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 - Physical Exam Results Vital Signs: Vital Signs Temperature 95.2 F L 05/11/17 10:10 Pulse Rate 116 H 05/11/17 10:10 Respiratory Rate 18 05/11/17 10:10 Blood Pressure 113/81 05/11/17 10:10 O2 Sat by Pulse Oximetry (%) Pertinent Admission Physical Exam Findings: WITHDRAWAL SYMPTOMS. Laboratory Tests 05/09/17 05/09/17 05/09/17 09:14 16:39 17:37 WBC RBC Hgb Hct MCV MCH MCHC RDW Plt Count MPV Sodium Potassium Chloride Carbon Dioxide Anion Gap BUN Creatinine Creat Clearance w eGFR POC Glucometer 236 319 Random Glucose Calcium Total Bilirubin AST ALT Alkaline Phosphatase Total Protein Albumin Urine Color Ltyellow Urine Appearance Clear Urine pH 5.0 Ur Specific [place] 1.015 Urine Protein Negative Urine Glucose (UA) 3+ H Urine Ketones Negative Urine Blood Negative Urine Nitrite Negative Urine Bilirubin Negative Urine Urobilinogen Negative Ur Leukocyte Esterase Negative RPR Titer 05/09/17 05/10/17 05/10/17 20:29 05:34 07:30 WBC 7.5 RBC 5.46 Hgb 13.3 Hct 43.3 MCV 79.3 L MCH 24.4 L MCHC 30.7 L RDW 15.8 Plt Count 236 MPV 9.8 D Sodium Potassium Chloride Carbon Dioxide Anion Gap BUN Creatinine Creat Clearance w eGFR POC Glucometer 189 235 Random Glucose Calcium Total Bilirubin AST ALT Alkaline Phosphatase Total Protein Albumin Urine Color Urine Appearance Urine pH Ur Specific [place] Urine Protein Urine Glucose (UA) Urine Ketones Urine Blood Urine Nitrite Urine Bilirubin Urine Urobilinogen Ur Leukocyte Esterase RPR Titer 05/10/17 05/10/17 05/10/17 07:30 07:30 16:53 WBC RBC Hgb Hct MCV MCH MCHC RDW Plt Count MPV Sodium 139 Potassium 4.1 Chloride 103 Carbon Dioxide 26 Anion Gap 10 BUN 10 Creatinine 0.8 Creat Clearance w eGFR > 60 POC Glucometer 214 Random Glucose 249 H Calcium 9.1 Total Bilirubin 0.4 AST 8 L D ALT 20 Alkaline Phosphatase 124 H D Total Protein 6.6 Albumin 3.2 L Urine Color Urine Appearance Urine pH Ur Specific [place] Urine Protein Urine Glucose (UA) Urine Ketones Urine Blood Urine Nitrite Urine Bilirubin Urine Urobilinogen Ur Leukocyte Esterase RPR Titer Nonreactive 05/11/17 06:02 WBC RBC Hgb Hct MCV MCH MCHC RDW Plt Count MPV Sodium Potassium Chloride Carbon Dioxide Anion Gap BUN Creatinine Creat Clearance w eGFR POC Glucometer 312 Random Glucose Calcium Total Bilirubin AST ALT Alkaline Phosphatase Total Protein Albumin Urine Color Urine Appearance Urine pH Ur Specific [place] Urine Protein Urine Glucose (UA) Urine Ketones Urine Blood Urine Nitrite Urine Bilirubin Urine Urobilinogen Ur Leukocyte Esterase RPR Titer LABS NOTED. - Treatment Hospital Course: Detox Protocol Followed, Detoxed Safely Patient has Accepted a Rehab Referral to: PT TRANSFERRED VIA AMBULANCE TO [facility]. - Medication Discharge Medications: Ambulatory Orders Amlodipine Besylate [Norvasc -] 5 mg PO DAILY #30 tablet 07/10/14 Metformin HCl [Glucophage -] 500 mg PO BID #60 tablet 07/10/14 Aripiprazole [Abilify] 10 mg PO DAILY #30 tablet 12/23/16 Lisinopril [Prinivil] 5 mg PO DAILY #30 tablet 12/23/16 Quetiapine Fumarate [Seroquel -] 200 mg PO HS #30 tab 12/23/16 Aspirin [ASA -] 81 mg PO DAILY 05/09/17 Atorvastatin Ca [Lipitor] 80 mg PO HS 05/09/17 Doxepin HCl [Sinequan -] 50 mg PO DAILY 05/09/17 Mirtazapine [Remeron -] 15 mg PO DAILY 05/09/17 Cefuroxime Axetil [Ceftin -] 500 mg PO BID tablet 05/13/17 - Diagnosis (1) Alcohol dependence with uncomplicated withdrawal Status: Acute (2) Cocaine dependence, uncomplicated Status: Acute (3) Insomnia Status: Acute Qualifiers: Insomnia type: unspecified Qualified Code(s): G47.00 - Insomnia, unspecified; G47.00 - Insomnia, unspecified (4) Nicotine dependence Status: Chronic Qualifiers: Nicotine product type: cigarettes Substance use status: uncomplicated Qualified Code(s): F17.210 - Nicotine dependence, cigarettes, uncomplicated; F17.210 - Nicotine dependence, cigarettes, uncomplicated (5) Diabetes mellitus type II, controlled Status: Chronic Qualifiers: Diabetes mellitus complication status: with neurologic complications Diabetes mellitus complication detail: with mononeuropathy 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 use Qualified Code(s): E11.41 - Type 2 diabetes mellitus with diabetic mononeuropathy; E11.41 - Type 2 diabetes mellitus with diabetic mononeuropathy; E11.41 - Type 2 diabetes mellitus with diabetic mononeuropathy; E11.41 - Type 2 diabetes mellitus with diabetic mononeuropathy; Z79.4 - halfway (current) use of insulin; Z79.4 - terminal carman (current) use of insulin; Z79.4 - halfway (current) use of insulin; Z79.4 - halfway (current) use of insulin (6) Hyperlipidemia Status: Chronic Qualifiers: Hyperlipidemia type: unspecified Qualified Code(s): E78.5 - Hyperlipidemia, unspecified; E78.5 - Hyperlipidemia, unspecified; E78.5 - Hyperlipidemia, unspecified (7) Hypertension Status: Chronic Qualifiers: Hypertension type: essential hypertension Qualified Code(s): I10 - Essential (primary) hypertension; I10 - Essential (primary) hypertension; I10 - Essential (primary) hypertension (8) Schizophrenia Status: Chronic Qualifiers: Schizophrenia type: undifferentiated schizophrenia Qualified Code(s) : F20.3 - Undifferentiated schizophrenia; F20.3 - Undifferentiated schizophrenia ; F20.3 - Undifferentiated schizophrenia; F20.3 - Undifferentiated schizophrenia (9) 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
== END 2017-05-11 15:49 | disposition short-term general hospital (02) | DRG 774 ==
LOC: YASAS 08:55 → Y3N 11:39
PROVIDERS: ADMIT Internal Medicine; ATTEND Internal Medicine
PROC: HZ2ZZZZ Detoxification Services for Substance Abuse Treatment (ICD-10-PCS; principal; 2017-05-09)
DX: F10.230 Alcohol dependence with withdrawal, uncomplicated (principal); F14.20 Cocaine dependence, uncomplicated; F17.210 Nicotine dependence, cigarettes, uncomplicated; F20.3 Undifferentiated schizophrenia; E11.41 Type 2 diabetes mellitus with diabetic mononeuropathy; I10 Essential (primary) hypertension; E78.5 Hyperlipidemia, unspecified; G40.909 Epilepsy, unspecified, not intractable, without status epilepticus; G47.00 Insomnia, unspecified; G62.9 Polyneuropathy, unspecified; I69.351 Hemiplegia and hemiparesis following cerebral infarction affecting right dominant side; R53.1 Weakness; R20.0 Anesthesia of skin; R20.2 Paresthesia of skin; Z91.14 Patient's other noncompliance with medication regimen; R26.2 Difficulty in walking, not elsewhere classified; Z99.89 Dependence on other enabling machines and devices; Z79.4 Long term (current) use of insulin
CPT/HCPCS: 36415; 80053; 81003; 85027; 86593; 93005; 93010

== ENCOUNTER 2017-05-11 11:49 | Inpatient (IN) | payer OTHER ==
--- NOTE | 2017-05-11 12:00 | PDOC ---
History of Present Illness - General Chief Complaint: Weakness Stated Complaint: DETOX Time Seen by Provider: 05/11/17 11:58 History Source: Patient Exam Limitations: No Limitations - History of Present Illness Initial Comments: 05/11/17 11:59 Patient is a 56 year old male with history of alcohol abuse, DM2, HTN, HLD who is currently receiving detoxification treatment for alcohol abuse at [facility]) and was sent to the ED c/o right sided numbness and difficulty walking. Patient claims these symptoms are new and have been getting worse for the last three days while he has been in rehab. Patient has been refusing librium because he feels this is what is causing his symptoms. Endorses feeling unstable and weak on his right side and chronic shortness of breath but denies headache, dizziness, chest pain, abdominal pain, nausea and vomiting. Patient is a senior living smoker who smokes 3x cigarettes a day. Baseline EtOH 6x beers per day, last drink 3 days ago. Past History - Past Medical History Allergies/Adverse Reactions: Allergies Allergy/AdvReac Type Severity Reaction Status Date / Time No Known Allergies Allergy Verified 05/11/17 11:56 Home Medications: Ambulatory Orders Amlodipine Besylate [Norvasc -] 5 mg PO DAILY #30 tablet 07/10/14 Metformin HCl [Glucophage -] 500 mg PO BID #60 tablet 07/10/14 Aripiprazole [Abilify] 10 mg PO DAILY #30 tablet 12/23/16 Lisinopril [Prinivil] 5 mg PO DAILY #30 tablet 12/23/16 Naltrexone HCl [Revia] 50 mg PO DAILY #30 tablet 12/23/16 Quetiapine Fumarate [Seroquel -] 200 mg PO HS #30 tab 12/23/16 Aspirin [ASA -] 81 mg PO DAILY 05/09/17 Atorvastatin Ca [Lipitor] 80 mg PO HS 05/09/17 Doxepin HCl [Sinequan -] 50 mg PO DAILY 05/09/17 Mirtazapine [Remeron -] 15 mg PO DAILY 05/09/17 Anemia: No Asthma: No Cancer: No Cardiac Disorders: No CVA: No COPD: No CHF: No Dementia: No Diabetes: Yes GI Disorders: No Disorders: No HTN: Yes Hypercholesterolemia: Yes Kidney Stones: No Liver Disease: No Seizures: No Thyroid Disease: No - Surgical History Abdominal Surgery: No Appendectomy: No Cardiac Surgery: No Cholecystectomy: No Lung Surgery: No Neurologic Surgery: Yes (1991 ROD INSER CERVICAL SPINE) Orthopedic Surgery: No - Reproductive History Testicular Surgery: No - Suicide/Smoking/Psychosocial Hx Smoking History: Current every day smoker Have you smoked in the past 12 months: Yes Number of Cigarettes Smoked Daily: 5 Cigars Per Day: 0 'Breaking Loose' booklet given: 05/09/17 Hx Alcohol Use: Yes Drug/Substance Use Hx: Yes Substance Use Type: Alcohol, Cocaine Hx Substance Use Treatment: Yes (detox and rehab at [facility]. Last 11/2016) Review of Systems - Review of Systems Able to Perform ROS?: Yes Comments:: 05/11/17 14:08 GEN: Denies fever, chills, recent illness HEENTM: Denies sore throat, changes in vision, changes in hearing Respiratory: Endorses chronic shortness of breath; Denies Cough Cardiac: Denies Chest Pain, Syncope ABD/GI: Denies Abdominal Pain, Nausea, Vomiting, Diarrhea, Constipation : Denies Dysuria, Burning on urination Musculoskeletal: Denies muscle or joint pain Integumentary: Denies diaphoresis, rashes, bruises Neurological: Endorses weakness on right side (both UE and LE), difficulty walking, instability on standing; Denies MCARTHUR, dizziness All Other Systems Reviewed and Negative Is the patient limited Filipino proficient: No *Physical Exam - Physical Exam Comments: GENERAL: AAOx3, nourished and generally well appearing, anxious, NAD HEAD: NCAT EYES: PERRLA, EOMI, sclera anicteric, conjunctiva clear ENT: Auricles normal inspection, hearing grossly normal, nares patent, no nasal discharge, no congestion, oropharynx clear without exudates, poor dentation, MMM NECK: supple, normal ROM, no LAD, no JVD, no masses RESP: speaking in full sentences, lungs CTAB, symmetrical chest expansion, no respiratory distress HEART: RRR, normal S1-S2, no MRG, peripheral pulses normal and equal bilaterally ABDOMEN: soft, NTND, nlBSx4, no guarding, no rebound, no masses MUSCULOSKELETAL: no CVA Tenderness EXTREMITIES: normal inspection, moving all extremities, full ROM, strength 5/5, sensation grossly intact with R slightly < L. NEUROLOGICAL: CN II-XII grossly intact, normal speech, abnormal gait (small steps, favoring and internally rotating right leg, new reliance on cane), no focal sensorimotor deficits, Right UE ataxia (poor finger nose), downward babinski, no pronator drift, (-)Romberg, NIH-SS:+1 (R arm ataxia). SKIN: warm, dry, normal turgor, no rashes or lesions noted. ED Treatment Course - LABORATORY CBC & Chemistry Diagram: 05/12/17 06:05 05/12/17 06:05 - RADIOLOGY Radiograph Interpretation: 05/11/17 15:11 [id number] RAD/CHEST X-RAY PORTABLE* HISTORY PROVIDED: CVA. A single frontal portable projection of the chest at 1:14 AM is submitted. The heart size is borderline enlarged. There are slightly increased interstitial markings diffusely that may be chronic in nature and accentuated by poor inspiration. No discrete infiltrates or pleural effusions are present. IMPRESSION: No acute pathology. [id number] CT/HEAD CT WITHOUT CONTRAST Cranial CT without contrast CLINICAL INFORMATION: right-sided weakness Multiplanar imaging was performed. Intravenous contrast was not administered. No intracranial hemorrhage is seen. There is no discrete infarct within the limitations of CT. No gross mass lesion is noted. There is no extra-axial fluid collection. The ventricles and cisterns appear unremarkable. No calvarial defect is seen. The partially imaged posterior nasopharyngeal soft tissues appear somewhat prominent given the patient's chronologic age. IMPRESSION: No CT evidence of acute intracranial pathology. The partially imaged posterior nasopharynx appear somewhat prominent. ENT consultation is suggested when the patient's clinical condition permits. Medical Decision Making - Medical Decision Making 05/11/17 13:56 56 year old male with h/o alcohol abuse and multiple risk factors for atherosclerosis sent from [facility] for right sided weakness, patient presenting with unstable gait and cerebellar symptoms. ddx includes but is not limited to CVA, alcohol abuse Workup for stroke with unknown onset admission for EKG reviewed 05/11/17 15:[address]: no acute pathology 05/11/17 15:13 CBC WBC 7.4 K/mm3 (4.0-10.0) 05/11/17 13:45 RBC 5.53 M/mm3 (4.00-5.60) 05/11/17 13:45 Hgb 13.6 GM/dL (11.7-16.9) 05/11/17 13:45 Hct 43.7 % (35.4-49) 05/11/17 13:45 MCV 78.9 fl (80-96) L 05/11/17 13:45 MCH 24.6 pg (25.7-33.7) L 05/11/17 13:45 MCHC 31.2 g/dl (32.0-35.9) L 05/11/17 13:45 RDW 15.7 % (11.9-15.9) 05/11/17 13:45 Plt Count 263 K/MM3 (134-434) 05/11/17 13:45 MPV 9.0 fl (7.5-11.1) 05/11/17 13:45 Neutrophils % 56.6 % (42.8-82.8) 05/11/17 13:45 Lymphocytes % 28.3 % (8-40) 05/11/17 13:45 Monocytes % 9.8 % (3.8-10.2) 05/11/17 13:45 Eosinophils % 4.2 % (0-4.5) 05/11/17 13:45 Basophils % 1.1 % (0-2.0) 05/11/17 13:45 Reviewed and grossly within normal limits CMP Sodium 138 mmol/L (136-145) 05/11/17 13:45 Potassium 3.9 mmol/L (3.5-5.1) 05/11/17 13:45 Chloride 102 mmol/L (98-107) 05/11/17 13:45 Carbon Dioxide 27 mmol/L (21-32) 05/11/17 13:45 Anion Gap 9 (8-16) 05/11/17 13:45 BUN 12 mg/dL (7-18) 05/11/17 13:45 Creatinine 0.9 mg/dL (0.7-1.3) 05/11/17 13:45 Creat Clearance w eGFR > 60 (>60) 05/11/17 13:45 Random Glucose 267 mg/dL (74-106) H 05/11/17 13:45 Calcium 9.3 mg/dL (8.5-10.1) 05/11/17 13:45 Total Bilirubin 0.4 mg/dL (0.2-1.0) 05/11/17 13:45 AST 9 U/L (15-37) L 05/11/17 13:45 ALT 20 U/L (12-78) 05/11/17 13:45 Alkaline Phosphatase 129 U/L (45-117) H 05/11/17 13:45 Creatine Kinase 83 IU/L (39-308) 05/11/17 13:45 Troponin I < 0.02 ng/ml (0.00-0.05) 05/11/17 13:45 Total Protein 7.0 g/dl (6.4-8.2) 05/11/17 13:45 Albumin 3.4 g/dl (3.4-5.0) 05/11/17 13:45 Triglycerides 133 mg/dL (35-160) 05/11/17 13:45 Cholesterol 166 mg/dL (50-200) 05/11/17 13:45 Total LDL Cholesterol 83 mg/dL (5-100) 05/11/17 13:45 HDL Cholesterol 60 mg/dL (40-60) 05/11/17 13:45 Reviewed Reassuring troponin Grossly within normal limits, non-concerning Laboratory Tests 05/11/17 13:45 PT with INR 10.60 INR 0.96 Urine Test Results Urine Color Straw 05/11/17 14:12 Urine Appearance Clear 05/11/17 14:12 Urine pH 7.0 (5.0-8.0) D 05/11/17 14:12 Urine Protein Negative (NEGATIVE) 05/11/17 14:12 Urine Glucose (UA) 3+ (NEGATIVE) H 05/11/17 14:12 Urine Ketones Negative (NEGATIVE) 05/11/17 14:12 Urine Blood Negative (NEGATIVE) 05/11/17 14:12 Urine Nitrite Negative (NEGATIVE) 05/11/17 14:12 Urine Bilirubin Negative (NEGATIVE) 05/11/17 14:12 Labs significant only for elevated glucose. Head CT negative for acute intracranial pathology. 05/11/17 15:44 Patient is a 56 year old male with significant history of substance abuse and significant risk factors for atherosclerotic vessel disease with new onset right sided neurological symptoms concerning for possible TIA/CVA requiring neurological workup. Spoke with Dr. Gisselle Jiménez (admitting for Dr. Farias) who agreed with admission to [facility] for workup of new onset right-sided weakness and ataxia Requested consultations for: Neuro: Claudine Leoso: Geo Mckeon Spoke with patient and explained the plan. Patient expressed understanding and was in agreement with the plan. *DC/Admit/Observation/Transfer Diagnosis at time of Disposition: Weakness - Discharge Dispostion Admit: Yes
[2017-05-11 12:06] VITALS: BMI 176.3
[2017-05-11] MEDS: SODIUM CHLORIDE 1,000 ML IV SCH (13:35)
[2017-05-11 13:58] LABS: BASOPHIL 1.1 % (0-2.0); EOSINOPHIL 4.2 % (0-4.5); MCH 24.6 pg (25.7-33.7); MCHC 31.2 g/dl (32.0-35.9); MEAN CELL VOLUME 78.9 fl (80-96); NEUTROPHILS 56.6 % (42.8-82.8); PLATELET COUNT 263 K/MM3 (134-434); RDW 15.7 % (11.9-15.9); WHITE BLOOD COUNT 7.4 K/mm3 (4.0-10.0)
[2017-05-11 14:12] LABS: INR 0.96 (0.82-1.09); PROTHROMBIN TIME (PATIENT) 10.6 SEC (9.98-11.88)
[2017-05-11 14:20] LABS: ALBUMIN 3.4 g/dl (3.4-5.0); ANION GAP 9 (8-16); CALCIUM 9.3 mg/dL (8.5-10.1); CO2 27 mmol/L (21-32); GLUCOSE,RANDOM 267 mg/dL (74-106)
[2017-05-11 14:24] LABS: ALK PHOS 129 U/L (45-117); BILIRUBIN,TOTAL 0.4 mg/dL (0.2-1.0); CHOLESTEROL 166 mg/dL (50-200); CPK 83 IU/L (39-308); CREATININE 0.9 mg/dL (0.7-1.3); SGOT/AST 9 U/L (15-37); SGPT/ALT 20 U/L (12-78); TROPONIN I < 0.02 ng/ml (0.00-0.05)
[2017-05-11 14:30] LABS: URINE APPEARANCE CLEAR; URINE BILIRUBIN NEGATIVE (NEGATIVE); URINE BLOOD NEGATIVE (NEGATIVE); URINE COLOR STRAW; URINE GLUCOSE (UA) 3+ (NEGATIVE); URINE KETONE NEGATIVE (NEGATIVE); URINE NITRITE NEGATIVE (NEGATIVE); URINE PROTEIN NEGATIVE (NEGATIVE); URINE UROBILINOGEN NEGATIVE mg/dL (0.2-1.0)
--- NOTE | 2017-05-11 15:12 | PDOC ---
Attending Attestation - Resident Resident Name: Cornelius Souza - ED Attending Attestation I have performed the following: I have examined & evaluated the patient, The case was reviewed & discussed with the resident, I agree w/resident's findings & plan, Exceptions are as noted - HPI HPI: 05/11/17 15:04 56 yo M presenting to the ER from [facility] due to Right sided weakness Pt admitted two days ago Reportedly nml Has complained of right sided weakness He was given a cane to assist with ambulation due to unsteady gait No head trauma - Physicial Exam PE: 05/11/17 15:12 On examination: Speaking in clear sentences RRR CTA Abn rapid alternating movements Gait abn - Medical Decision Making 05/11/17 15:20 This is a 56 yo M presenting to the ER with a complaint of right sided weakness Pt thought this was related to Librium he was given for alcohol withdrawal Pt has risk factors for TIA/CVA 05/11/17 15:21 Laboratory Tests 05/11/17 05/11/17 05/11/17 13:45 13:45 13:45 WBC 7.4 Hgb 13.6 Hct 43.7 Plt Count 263 Neutrophils % 56.6 Lymphocytes % 28.3 INR 0.96 Sodium 138 Potassium 3.9 Chloride 102 Carbon Dioxide 27 BUN 12 Creatinine 0.9 Random Glucose 267 H Creatine Kinase 83 Troponin I < 0.[address]: no acute intracranial pathology EKG: Twelve-lead EKG was performed and reviewed by me. There is normal sinus rhythm with a normal rate of 74 bpm. The axis is normal. The intervals are normal. There are no ST abrasions or depressions. Prominent st segments v2, v3, v4 No t wave inversion 05/11/17 15:[address] Pitts
--- NOTE | 2017-05-11 16:12 | HP ---
Admitting History and Physical - Admission History of Present Illness: Patient is a 56 year old male with history of alcohol abuse, DM2, HTN, HLD currently undergoing detoxification treatment for alcohol abuse at [facility] who was sent to ED c/o right sided numbness and difficulty walking. Patient claims these symptoms are new and have been getting worse for the last three days while he has been in rehab. Patient has been refusing librium because he feels this is causing his symptoms. Endorses feeling unstable and weak on his right side but denies headache, dizziness, chest pain and abdominal pain. History Source: Patient, Medical Record - Past Medical History Cardiovascular: Yes: HTN, Hyperlipdemia Endocrine: Yes: Diabetes Mellitus - Smoking History Smoking history: Current every day smoker Have you smoked in the past 12 months: Yes Aproximately how many cigarettes per day: 5 - Alcohol/Substance Use Hx Alcohol Use: Yes Home Medications - Allergies Allergies/Adverse Reactions: Allergies Allergy/AdvReac Type Severity Reaction Status Date / Time No Known Allergies Allergy Verified 05/11/17 11:56 - Home Medications Home Medications: Ambulatory Orders Amlodipine Besylate [Norvasc -] 5 mg PO DAILY #30 tablet 07/10/14 Metformin HCl [Glucophage -] 500 mg PO BID #60 tablet 07/10/14 Aripiprazole [Abilify] 10 mg PO DAILY #30 tablet 12/23/16 Lisinopril [Prinivil] 5 mg PO DAILY #30 tablet 12/23/16 Naltrexone HCl [Revia] 50 mg PO DAILY #30 tablet 12/23/16 Quetiapine Fumarate [Seroquel -] 200 mg PO HS #30 tab 12/23/16 Aspirin [ASA -] 81 mg PO DAILY 05/09/17 Atorvastatin Ca [Lipitor] 80 mg PO HS 05/09/17 Doxepin HCl [Sinequan -] 50 mg PO DAILY 05/09/17 Mirtazapine [Remeron -] 15 mg PO DAILY 05/09/17 Family Disease History - Family Disease History Family Disease History: Diabetes: Mother, Heart Disease: Father (), Mother, Other: Father, Brother (), Sister () Physical Examination Vital Signs: Vital Signs Temperature 97.9 F 05/11/17 15:48 Pulse Rate 86 05/11/17 15:48 Respiratory Rate 18 05/11/17 15:48 Blood Pressure 125/83 05/11/17 15:48 O2 Sat by Pulse Oximetry (%) 100 05/11/17 15:48 Constitutional: Yes: Calm, Thin Cardiovascular: Yes: Regular Rate and Rhythm, S1, S2 Respiratory: Yes: CTA Bilaterally Gastrointestinal: Yes: Normal Bowel Sounds, Soft Edema: No ...Motor Strength: RUE, RLE (3/5 strenght sensory intact) Psychiatric: Yes: Alert, Oriented Imaging - Results Chest X-ray: Report Reviewed Cat Scan: Report Reviewed Problem List - Problems (1) Weakness Assessment/Plan: right side weakness: carotid doppler MRI neuro checks PT neuro eval Code(s): R53.1 - WEAKNESS (2) Diabetes mellitus Assessment/Plan: insulin bgm hga1c lipid panel Code(s): E11.9 - TYPE 2 DIABETES MELLITUS WITHOUT COMPLICATIONS (3) Hyperlipidemia Assessment/Plan: lipid panel Code(s): E78.5 - HYPERLIPIDEMIA, UNSPECIFIED Qualifiers: (4) Hypertension Code(s): I10 - ESSENTIAL (PRIMARY) HYPERTENSION Qualifiers: (5) Dizziness Assessment/Plan: carotid doplr cardio eval tele Code(s): R42 - DIZZINESS AND GIDDINESS
--- NOTE | 2017-05-11 18:01 | CONSULT ---
Consult - text type - Consultation Consultation Note: Neurology History of Present Illness: Patient is a 56 year old male with history of alcohl abuse, DM2, HTN, HLD currently undergoing detoxification treatment for alcohol abuse at [facility] who was sent to ED c/o right sided numbness and difficulty walking. Patient claims these symptoms are new and have been getting worse for the last three days while he has been in rehab. Patient has been refusing librium because he feels this is causing his symptoms. Endorses feeling unstable and weak on his right side but CT head without acute changes. During my evaluation, possessed full strength without deficits. Seemed to be frustrated by "some pill they were trying to give me at [facility]". Past History - Past Medical History Allergies/Adverse Reactions: Allergies Allergy/AdvReac Type Severity Reaction Status Date / Time No Known Allergies Allergy Verified 05/11/17 11:56 Home Medications: Ambulatory Orders Amlodipine Besylate [Norvasc -] 5 mg PO DAILY #30 tablet 07/10/14 Metformin HCl [Glucophage -] 500 mg PO BID #60 tablet 07/10/14 Aripiprazole [Abilify] 10 mg PO DAILY #30 tablet 12/23/16 Lisinopril [Prinivil] 5 mg PO DAILY #30 tablet 12/23/16 Naltrexone HCl [Revia] 50 mg PO DAILY #30 tablet 12/23/16 Quetiapine Fumarate [Seroquel -] 200 mg PO HS #30 tab 12/23/16 Aspirin [ASA -] 81 mg PO DAILY 05/09/17 Atorvastatin Ca [Lipitor] 80 mg PO HS 05/09/17 Doxepin HCl [Sinequan -] 50 mg PO DAILY 05/09/17 Mirtazapine [Remeron -] 15 mg PO DAILY 05/09/17 Anemia: No Asthma: No Cancer: No Cardiac Disorders: No CVA: No COPD: No CHF: No Dementia: No Diabetes: Yes GI Disorders: No Disorders: No HTN: Yes Hypercholesterolemia: Yes Kidney Stones: No Liver Disease: No Seizures: No Thyroid Disease: No - Surgical History Abdominal Surgery: No Appendectomy: No Cardiac Surgery: No Cholecystectomy: No Lung Surgery: No Neurologic Surgery: Yes (1991 INSER CERVICAL SPINE) Orthopedic Surgery: No - Reproductive History Testicular Surgery: No - Suicide/Smoking/Psychosocial Hx Smoking History: Current every day smoker Have you smoked in the past 12 months: Yes Number of Cigarettes Smoked Daily: 5 Cigars Per Day: 0 'Breaking Loose' booklet given: 05/09/17 Hx Alcohol Use: Yes Drug/Substance Use Hx: Yes Substance Use Type: Alcohol, Cocaine Hx Substance Use Treatment: Yes (detox and rehab at [facility]. Last 11/2016) Family Disease History - Family Disease History Family Disease History: Diabetes: Mother, Heart Disease: Father (), Mother, Other: Father, Brother (), Sister () Review of Systems GEN: Denies fever, chills, recent illness HEENTM: Denies sore throat, Changes in vision, Changes in hearing Respiratory: Endorses chronic Shortness of Breath; Denies Cough Cardiac: Denies Chest Pain, Syncope ABD/GI: Denies Abdominal Pain, Nausea, Vomiting, Diarrhea, Constipation : Denies Dysuria, Burning on urination Musculoskeletal: Denies muscle or joint pain Integumentary: Denies diaphoresis, rashes, bruises Neurological: Endorses weakness on right side (both UE and LE), difficulty walking; Denies MCARTHUR, dizziness All Other Systems Reviewed and Negative Physical Examination Vital Signs: Vital Signs Temperature 97.9 F 05/11/17 15:48 Pulse Rate 86 05/11/17 15:48 Respiratory Rate 18 05/11/17 15:48 Blood Pressure 125/83 05/11/17 15:48 O2 Sat by Pulse Oximetry (%) 100 05/11/17 15:48 Constitutional: Yes: Calm, Thin Cardiovascular: Yes: Regular Rate and Rhythm, S1, S2 Respiratory: Yes: CTA Bilaterally Gastrointestinal: Yes: Normal Bowel Sounds, Soft Edema: No Neuro: No aphasia, CN grossly intact, RUE, RLE 5-/5 on full effort, sensory intact, finger to nose normal, gait deferred Psychiatric: Yes: Alert, Oriented CBCD WBC 7.4 K/mm3 (4.0-10.0) 05/11/17 13:45 RBC 5.53 M/mm3 (4.00-5.60) 05/11/17 13:45 Hgb 13.6 GM/dL (11.7-16.9) 05/11/17 13:45 Hct 43.7 % (35.4-49) 05/11/17 13:45 MCV 78.9 fl (80-96) L 05/11/17 13:45 MCHC 31.2 g/dl (32.0-35.9) L 05/11/17 13:45 RDW 15.7 % (11.9-15.9) 05/11/17 13:45 Plt Count 263 K/MM3 (134-434) 05/11/17 13:45 MPV 9.0 fl (7.5-11.1) 05/11/17 13:45 CMP Sodium 138 mmol/L (136-145) 05/11/17 13:45 Potassium 3.9 mmol/L (3.5-5.1) 05/11/17 13:45 Chloride 102 mmol/L (98-107) 05/11/17 13:45 Carbon Dioxide 27 mmol/L (21-32) 05/11/17 13:45 Anion Gap 9 (8-16) 05/11/17 13:45 BUN 12 mg/dL (7-18) 05/11/17 13:45 Creatinine 0.9 mg/dL (0.7-1.3) 05/11/17 13:45 Creat Clearance w eGFR > 60 (>60) 05/11/17 13:45 Calcium 9.3 mg/dL (8.5-10.1) 05/11/17 13:45 Total Bilirubin 0.4 mg/dL (0.2-1.0) 05/11/17 13:45 AST 9 U/L (15-37) L 05/11/17 13:45 ALT 20 U/L (12-78) 05/11/17 13:45 Alkaline Phosphatase 129 U/L (45-117) H 05/11/17 13:45 Total Protein 7.0 g/dl (6.4-8.2) 05/11/17 13:45 Albumin 3.4 g/dl (3.4-5.0) 05/11/17 13:45 - RADIOLOGY CT/HEAD CT WITHOUT CONTRAST IMPRESSION: No CT evidence of acute intracranial pathology. The partially imaged posterior nasopharynx appear somewhat prominent. ENT consultation is suggested when the patient's clinical condition permits. Plan: 56 year old male with history of alcohl abuse, DM2, HTN, HLD currently undergoing detoxification treatment for alcohol abuse at [facility] who was sent to ED c/o right sided numbness and difficulty walking. Patient claims these symptoms are new and have been getting worse for the last three days while he has been in rehab. Patient has been refusing librium because he feels this is causing his symptoms. Endorses feeling unstable and weak on his right side but CT head without acute changes. During my evaluation, possessed full strength without deficits. Seemed to be frustrated by "some pill they were trying to give me at [facility]". Because of patient's history and risk factors, will order MRI brain to rule out CVA, though unlikely. Cannot rule out TIA. Monitor for Etoh withdrawal, Librium if patient willing to take Multivitamin, thiamine Tight glycemic control Continue ASA 81mg Monitor BP, goal < 140/90 Continue Lisinopril, norvasc Cardiology consulted Continue Statin, goal LDL <100 Physcial therapy ordered Fall precautions
[2017-05-11] MEDS ORDERED: FLU VACCINE QUAD 60 MCG/0.5 ML (MDV 17-18) IM ONE (18:55)
[2017-05-11 19:30] LABS: URINE LEUK ESTERASE Negative (NEGATIVE)
--- NOTE | 2017-05-11 21:43 | EKG ---
Test Reason : Blood Pressure : / mmHG Vent. Rate : 074 BPM Atrial Rate : 074 BPM P-R Int : 126 ms QRS Dur : 090 ms QT Int : 368 ms P-R-T Axes : 067 005 062 degrees QTc Int : 408 ms NORMAL SINUS RHYTHM POSSIBLE LEFT ATRIAL ENLARGEMENT RSR' INV2 BORDERLINE ECG WHEN COMPARED WITH ECG OF 09-MAY-2017 13:19, APPEARANCE OF RSR' REPEAT EKG IF CLINICALLY INDICATED Confirmed by JENNIFFER SAEZ MD ([id number]) on 05/11/2017 9:43:46 PM Referred By: Confirmed By:JENNIFFER SAEZ MD
[2017-05-11] MEDS: INSULIN SLIDING SCALE (NOVOLOG) 1 VIAL SQ SCH (22:40)
[2017-05-11] MEDS ORDERED: PT OWN MED DRAWER 7, Y5N ONE (23:08)
[2017-05-11] MEDS: QUEtiapine FUMARATE 200 MG TABLET PO SCH (23:18)
[2017-05-12] MEDS: INSULIN SLIDING SCALE (NOVOLOG) 1 VIAL SQ SCH ×4 (06:15→17:37)
[2017-05-12 06:34] LABS: BASOPHIL 0.7 % (0-2.0); EOSINOPHIL 3.8 % (0-4.5); MCH 24.6 pg (25.7-33.7); MCHC 31.3 g/dl (32.0-35.9); MEAN CELL VOLUME 78.5 fl (80-96); MEAN PLT VOLUME 9.5 fl (7.5-11.1); NEUTROPHILS 56.2 % (42.8-82.8); PLATELET COUNT 250 K/MM3 (134-434)
[2017-05-12 07:06] LABS: ALBUMIN 3.4 g/dl (3.4-5.0); ANION GAP 10 (8-16); CALCIUM 8.9 mg/dL (8.5-10.1); CHOLESTEROL 162 mg/dL (50-200); CO2 26 mmol/L (21-32); GLUCOSE,RANDOM 239 mg/dL (74-106); SGOT/AST 17 U/L (15-37)
[2017-05-12 07:10] LABS: ALK PHOS 117 U/L (45-117); BILIRUBIN,TOTAL 0.4 mg/dL (0.2-1.0); CREATININE 0.7 mg/dL (0.7-1.3); SGPT/ALT 26 U/L (12-78)
--- NOTE | 2017-05-12 08:47 | PN ---
Progress Note, Physician History of Present Illness: c/o rt sided weakness - Current Medication List Current Medications: Active Medications Amlodipine Besylate (Norvasc -) 5 mg PO DAILY MARTHA Aripiprazole (Abilify) 10 mg PO DAILY [facility] Sodium Chloride (Normal Saline -) 1,000 mls @ 42 mls/hr IV ASDIR MARTHA Last Admin: 05/11/17 13:35 Dose: 42 mls/hr Insulin Aspart (Novolog Vial Sliding Scale -) 1 vial SQ ACHS [facility] PRN Reason: Protocol Last Admin: 05/12/17 06:15 Dose: 4 units Lisinopril (Prinivil) 5 mg PO DAILY MARTHA Quetiapine Fumarate (Seroquel -) 200 mg PO HS MARTHA Last Admin: 05/11/17 23:18 Dose: 200 mg - Objective Vital Signs: Vital Signs Temperature 98.1 F 05/12/17 06:55 Pulse Rate 89 05/12/17 06:55 Respiratory Rate 20 05/12/17 06:55 Blood Pressure 109/79 05/12/17 06:55 O2 Sat by Pulse Oximetry (%) 97 05/11/17 20:43 Labs: CBC, BMP 05/12/17 06:05 05/12/17 06:05 INR, PTT INR 0.96 (0.82-1.09) 05/11/17 13:45 Assessment/Plan - Problems (1) Weakness Assessment/Plan: right side weakness: carotid doppler MRI noted--ent consult neuro checks PT neuro eval noted Code(s): R53.1 - WEAKNESS (2) Diabetes mellitus Assessment/Plan: insulin bgm hga1c add januvia lipid panel Code(s): E11.9 - TYPE 2 DIABETES MELLITUS WITHOUT COMPLICATIONS (3) Hyperlipidemia Assessment/Plan: lipid panel Code(s): E78.5 - HYPERLIPIDEMIA, UNSPECIFIED Qualifiers: (4) Hypertension monitor Code(s): I10 - ESSENTIAL (PRIMARY) HYPERTENSION Qualifiers: (5) Dizziness Assessment/Plan: carotid doplr cardio eval tele ent Code(s): R42 - DIZZINESS AND GIDDINESS (6) Sinusitis ceftin
[2017-05-12] MEDS ORDERED: PT OWN MED DRAWER 7, Y5N ONE ×3 (09:27→21:56)
--- NOTE | 2017-05-12 09:36 | PN ---
Progress Note (short form) - Note Progress Note: Neurology History of Present Illness: Patient is a 56 year old male with history of alcohl abuse, DM2, HTN, HLD currently undergoing detoxification treatment for alcohol abuse at [facility] who was sent to ED c/o right sided numbness and difficulty walking. Patient claims these symptoms are new and have been getting worse for the last three days while he has been in rehab. Patient has been refusing librium because he feels this is causing his symptoms. Endorses feeling unstable and weak on his right side but CT head without acute changes. During my evaluation, possessed full strength without deficits. Seemed to be frustrated by "some pill they were trying to give me at [facility]". The patient completed MRI brain which I reviewed in detail and showed no acute changes. Carotid Doppler also completed and reviewed with no HD significant stenosis noted. Active Medications Amlodipine Besylate (Norvasc -) 5 mg PO DAILY [facility] Aripiprazole (Abilify) 10 mg PO DAILY [facility] Cefuroxime Axetil (Ceftin -) 500 mg PO BID [facility] Sodium Chloride (Normal Saline -) 1,000 mls @ 42 mls/hr IV ASDIR [facility] Last Admin: 05/11/17 13:35 Dose: 42 mls/hr Insulin Aspart (Novolog Vial Sliding Scale -) 1 vial SQ ACHS [facility] PRN Reason: Protocol Last Admin: 05/12/17 06:15 Dose: 4 units Lisinopril (Prinivil) 5 mg PO DAILY [facility] Quetiapine Fumarate (Seroquel -) 200 mg PO HS [facility] Last Admin: 05/11/17 23:18 Dose: 200 mg Sitagliptin Phosphate (Januvia -) 50 mg PO DAILY@0700 [facility] Physical Examination Vital Signs: Vital Signs Temperature 98.1 F 05/12/17 06:55 Pulse Rate 89 05/12/17 06:55 Respiratory Rate 20 05/12/17 06:55 Blood Pressure 109/79 05/12/17 06:55 O2 Sat by Pulse Oximetry (%) 97 05/11/17 20:43 Constitutional: Yes: Calm, Thin Cardiovascular: Yes: Regular Rate and Rhythm, S1, S2 Respiratory: Yes: CTA Bilaterally Gastrointestinal: Yes: Normal Bowel Sounds, Soft Edema: No Neuro: No aphasia, CN grossly intact, RUE, RLE 5-/5 on full effort, sensory intact, finger to nose normal, gait deferred Psychiatric: Yes: Alert, Oriented CBCD WBC 8.0 K/mm3 (4.0-10.0) 05/12/17 06:05 RBC 5.42 M/mm3 (4.00-5.60) 05/12/17 06:05 Hgb 13.3 GM/dL (11.7-16.9) 05/12/17 06:05 Hct 42.6 % (35.4-49) 05/12/17 06:05 MCV 78.5 fl (80-96) L 05/12/17 06:05 MCHC 31.3 g/dl (32.0-35.9) L 05/12/17 06:05 RDW 16.0 % (11.9-15.9) H 05/12/17 06:05 Plt Count 250 K/MM3 (134-434) 05/12/17 06:05 MPV 9.5 fl (7.5-11.1) 05/12/17 06:05 CMP Sodium 140 mmol/L (136-145) 05/12/17 06:05 Potassium 3.9 mmol/L (3.5-5.1) 05/12/17 06:05 Chloride 104 mmol/L (98-107) 05/12/17 06:05 Carbon Dioxide 26 mmol/L (21-32) 05/12/17 06:05 Anion Gap 10 (8-16) 05/12/17 06:05 BUN 10 mg/dL (7-18) 05/12/17 06:05 Creatinine 0.7 mg/dL (0.7-1.3) D 05/12/17 06:05 Creat Clearance w eGFR > 60 (>60) 05/12/17 06:05 Calcium 8.9 mg/dL (8.5-10.1) 05/12/17 06:05 Total Bilirubin 0.4 mg/dL (0.2-1.0) 05/12/17 06:05 AST 17 U/L (15-37) D 05/12/17 06:05 ALT 26 U/L (12-78) D 05/12/17 06:05 Alkaline Phosphatase 117 U/L (45-117) 05/12/17 06:05 Total Protein 7.0 g/dl (6.4-8.2) 05/12/17 06:05 Albumin 3.4 g/dl (3.4-5.0) 05/12/17 06:05 - RADIOLOGY CT/HEAD CT WITHOUT CONTRAST IMPRESSION: No CT evidence of acute intracranial pathology. The partially imaged posterior nasopharynx appear somewhat prominent. ENT consultation is suggested when the patient's clinical condition permits. Plan: 56 year old male with history of alcohl abuse, DM2, HTN, HLD currently undergoing detoxification treatment for alcohol abuse at [facility] who was sent to ED c/o right sided numbness and difficulty walking. Patient claims these symptoms are new and have been getting worse for the last three days while he has been in rehab. Patient has been refusing librium because he feels this is causing his symptoms. Endorses feeling unstable and weak on his right side but CT head without acute changes. During my evaluation, possessed full strength without deficits. Seemed to be frustrated by "some pill they were trying to give me at [facility]". MRI brain reviewed and no acute changes CD also reviewed and no HD stenosis Monitor for Etoh withdrawal, Librium if patient willing to take Multivitamin, thiamine Tight glycemic control Continue ASA 81mg Monitor BP, goal < 140/90 Continue Lisinopril, norvasc Cardiology consulted Continue Statin, goal LDL <100 Physcial therapy ordered Fall precautions Consider discharge planning as patient stabilizes
[2017-05-12] MEDS: LISINOPRIL 5 MG TABLET (FP) PO SCH (09:45)
[2017-05-12] MEDS: amLODIPine BESYLATE 5 MG TABLET (FP) PO SCH (09:45)
--- NOTE | 2017-05-12 10:33 | CONSULT ---
Consult Detox [facility] Reason for Current Admission/Consult: alcohol withdrawal and crack cocaine dependence Referred by:: pratima almeida MD - History History of Present Illness: 56 yo m with h/o chronic alcoholism, crack cocaine 3-6x/week, admitted to [facility] for alcohol detox on 05/09, was refusing librium, developed new r sided weakness and numbness r side RLE>RUE and was transferred to [facility] and admitted for work up. so far no signs of stroke/TIA, started on anitbiotics for sinusitis which may be causing symptoms? Patient denies symptoms of alcohol withdrawal as this time, has not received any libirum since transfer. denies h/ o alcohol withdrawal seizures or DTs in past. claims to have seizures after head injury but not currently on any medications. 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 CIWA Score - CIWA Score Nausea/Vomitin-No Nausea/No Vomiting Muscle Tremors: None Anxiety: 0-No Anxiety, at Ease Agitation: 0-Normal Activity Paroxysmal Sweats: No Perspiration Orientation: 0-Oriented Tacttile Disturbances: 3-Moderate Itch/Numb/Burn Auditory Disturbances: 0-None Visual Disturbances: 0-None Headache: 0-None Present CIWA-Ar Total Score: 3 Assessment Plan - Diagnosis (1) Alcohol dependence with uncomplicated withdrawal Status: Acute (2) Nicotine dependence Status: Acute Qualifiers: Nicotine product type: cigarettes Substance use status: uncomplicated Qualified Code(s): F17.210 - Nicotine dependence, cigarettes, uncomplicated; F17.210 - Nicotine dependence, cigarettes, uncomplicated (3) Schizophrenia, undifferentiated type, subchronic Status: Chronic (4) Cocaine dependence Status: Acute Qualifiers: Substance use status: uncomplicated Qualified Code(s): F14.20 - Cocaine dependence, uncomplicated; F14.20 - Cocaine dependence, uncomplicated; F14.20 - Cocaine dependence, uncomplicated - Plan Plan: patient does not require any medication at this time, if he reports symptoms can give ativan 2mg po prn for anxiety , insomnia or tremors q4h. Patient is requesting to return to [facility] for Rehab. Recommend contacting program today to arrange for insurance preauthorization and bed hold for when he can be discharged. discussed with nurse - Medication Detox Regimen/Protocol: Not Applicable
[2017-05-12] MEDS: CEFUROXIME AXETIL 500 MG TABLET PO SCH (11:07)
[2017-05-12] MEDS: ARIPiprazole 10 MG TABLET PO SCH (12:29)
--- NOTE | 2017-05-12 15:24 | CON.CARD ---
Consult Consult Specialty:: Cardiology Referred by:: charisma storm Reason for Consultation:: right side weakness. dizzy - History of Present Illness Chief Complaint: dizzy History of Present Illness: 56 year old male with a pmhx of dm, htn, hld, and etoh abuse undergoing detoxification treatment and sent to ER with c/o right sided numbness and weakness and difficulty walking. Also c/o dizzines. Symptoms for 2 weeks but worse in rehab. No chest pain, dyspnea, or palpitations. No pnd or orthopnea. 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 Cardio/Vascular: Yes: HTN, Hyperlipdemia Endocrine: Yes: Diabetes Mellitus - Alcohol/Substance Use Hx Alcohol Use: Yes - Smoking History Smoking history: Current every day smoker Have you smoked in the past 12 months: Yes Aproximately how many cigarettes per day: 5 Home Medications - Allergies Allergies/Adverse Reactions: Allergies Allergy/AdvReac Type Severity Reaction Status Date / Time No Known Allergies Allergy Verified 05/11/17 11:56 - Home Medications Home Medications: Ambulatory Orders Amlodipine Besylate [Norvasc -] 5 mg PO DAILY #30 tablet 07/10/14 Metformin HCl [Glucophage -] 500 mg PO BID #60 tablet 07/10/14 Aripiprazole [Abilify] 10 mg PO DAILY #30 tablet 12/23/16 Lisinopril [Prinivil] 5 mg PO DAILY #30 tablet 12/23/16 Naltrexone HCl [Revia] 50 mg PO DAILY #30 tablet 12/23/16 Quetiapine Fumarate [Seroquel -] 200 mg PO HS #30 tab 12/23/16 Aspirin [ASA -] 81 mg PO DAILY 05/09/17 Atorvastatin Ca [Lipitor] 80 mg PO HS 05/09/17 Doxepin HCl [Sinequan -] 50 mg PO DAILY 05/09/17 Mirtazapine [Remeron -] 15 mg PO DAILY 05/09/17 Family Disease History - Family Disease History Family Disease History: Diabetes: Mother, Heart Disease: Father (), Mother, Other: Father, Brother (), Sister () Vital Signs: Vital Signs Temperature 97.8 F 05/12/17 09:00 Pulse Rate 85 05/12/17 09:00 Respiratory Rate 20 05/12/17 09:00 Blood Pressure 139/82 05/12/17 09:00 O2 Sat by Pulse Oximetry (%) 97 05/12/17 09:00 Constitutional: Yes: No Distress Neck: Yes: WNL Respiratory: Yes: CTA Bilaterally Gastrointestinal: Yes: Normal Bowel Sounds, Soft Cardiovascular: Yes: Regular Rate and Rhythm JVD: No Carotid Bruit: No Heart Sounds: Yes: S1, S2 Murmur: No: Systolic Murmur Edema: No Neurological: Yes: Weakness ...Motor Strength: RLE - Other Data Labs, Other Data: CBC, BMP 05/12/17 06:05 05/12/17 06:05 INR, PTT INR 0.96 (0.82-1.09) 05/11/17 13:45 Imaging - Results X-ray: Report Reviewed Cat Scan: Report Reviewed MRI: Report Reviewed EKG: Image Reviewed Problem List - Problems (1) Dizziness Code(s): R42 - DIZZINESS AND GIDDINESS Assessment/Plan 56 year old male with a pmhx of dm, htn, hld, and etoh abuse undergoing detoxification treatment and sent to ER with c/o right sided numbness and weakness and difficulty walking. Also c/o dizzines. Symptoms for 2 weeks but worse in rehab. No chest pain, dyspnea, or palpitations. No pnd or orthopnea. No edema 1) Cardiac/dizziness -EKG with sinus rhythm with RSR and no acute st changes Carotid duplex with no stenosis CT head and MRI no acute m/s/b Tele: uneventful at this time. Plan for Echocardiogram and monitor tele 24 hours -F/u with neurology if any other work up needed. Thiamine/folate 2) HTN Restarted home meds 3) Hld -restarted statins
[2017-05-12] MEDS ORDERED: LORazepam 1 MG TABLET PO PRN ×2 (17:04)
[2017-05-13] MEDS: CEFUROXIME AXETIL 500 MG TABLET PO SCH ×2 (00:23→09:33)
[2017-05-13] MEDS: QUEtiapine FUMARATE 200 MG TABLET PO SCH (00:23)
[2017-05-13] MEDS: INSULIN SLIDING SCALE (NOVOLOG) 1 VIAL SQ SCH ×3 (00:23→12:07)
[2017-05-13] MEDS: SODIUM CHLORIDE 1,000 ML IV SCH (06:56)
[2017-05-13] MEDS ORDERED: sitaGLIPtin PHOSPHATE 50 MG TABLET PO SCH (07:00)
--- NOTE | 2017-05-13 08:14 | DS ---
Physical Examination Vital Signs: Vital Signs Temperature 98.5 F 05/13/17 06:00 Pulse Rate 75 05/13/17 06:00 Respiratory Rate 20 05/13/17 06:00 Blood Pressure 122/83 05/13/17 06:00 O2 Sat by Pulse Oximetry (%) 97 05/13/17 06:00 Labs: CBC, BMP 05/12/17 06:05 05/12/17 06:05 Discharge Summary Reason For Visit: WEAKNESS Current Active Problems Alcohol dependence with uncomplicated withdrawal (Acute) Cocaine dependence (Acute 06/14/14) Dizziness (Acute) Weakness (Acute) Schizophrenia, undifferentiated type, subchronic (Chronic 06/14/14) Hospital Course: Patient is a 56 year old male with history of alcohol abuse, DM2, HTN, HLD currently undergoing detoxification treatment for alcohol abuse at [facility] who was sent to ED c/o right sided numbness and difficulty walking. Patient claims these symptoms are new and have been getting worse for the last three days while he has been in rehab. Patient has been refusing librium because he feels this is causing his symptoms. Endorses feeling unstable and weak on his right side but denies headache, dizziness, chest pain and abdominal pain. History Source: Patient, Medical Record - Past Medical History Cardiovascular: Yes: HTN, Hyperlipdemia Endocrine: Yes: Diabetes Mellitus - Smoking History Smoking history: Current every day smoker Assessment/Plan - Problems (1) Weakness Assessment/Plan: right side weakness: carotid doppler MRI noted--ent consult neuro checks PT neuro eval noted Code(s): R53.1 - WEAKNESS (2) Diabetes mellitus Assessment/Plan: insulin bgm hga1c add januvia lipid panel Code(s): E11.9 - TYPE 2 DIABETES MELLITUS WITHOUT COMPLICATIONS (3) Hyperlipidemia Assessment/Plan: lipid panel Code(s): E78.5 - HYPERLIPIDEMIA, UNSPECIFIED Qualifiers: (4) Hypertension monitor Vital Signs Period Temp Pulse Resp BP Sys/Cabrera Pulse Ox Last 24 Hr 98.1 F-98.5 F 75-112 18-20 112-135/78-92 97 Code(s): I10 - ESSENTIAL (PRIMARY) HYPERTENSION Qualifiers: (5) Dizziness Assessment/Plan: carotid doplr cardio eval -EKG with sinus rhythm with RSR and no acute st changes Carotid duplex with no stenosis CT head and MRI no acute m/s/b Tele: uneventful at this time. Plan for Echocardiogram (6) Sinusitis ON ABX ENT Condition: Improved - Instructions Disposition: TRANSFER ACUTE CARE/OTHER HOSP - Home Medications Comprehensive Discharge Medication List: Ambulatory Orders Amlodipine Besylate [Norvasc -] 5 mg PO DAILY #30 tablet 07/10/14 Metformin HCl [Glucophage -] 500 mg PO BID #60 tablet 07/10/14 Aripiprazole [Abilify] 10 mg PO DAILY #30 tablet 12/23/16 Lisinopril [Prinivil] 5 mg PO DAILY #30 tablet 12/23/16 Naltrexone HCl [Revia] 50 mg PO DAILY #30 tablet 12/23/16 Quetiapine Fumarate [Seroquel -] 200 mg PO HS #30 tab 12/23/16 Aspirin [ASA -] 81 mg PO DAILY 05/09/17 Atorvastatin Ca [Lipitor] 80 mg PO HS 05/09/17 Doxepin HCl [Sinequan -] 50 mg PO DAILY 05/09/17 Mirtazapine [Remeron -] 15 mg PO DAILY 05/09/17 Cefuroxime Axetil [Ceftin -] 500 mg PO BID tablet 05/13/17
[2017-05-13 08:30] VITALS: BP 135/83; PULSE 82; TEMP 98.2
[2017-05-13] MEDS: amLODIPine BESYLATE 5 MG TABLET (FP) PO SCH (09:34)
[2017-05-13] MEDS: LISINOPRIL 5 MG TABLET (FP) PO SCH (09:34)
[2017-05-13] MEDS: ARIPiprazole 10 MG TABLET PO SCH (09:47)
--- NOTE | 2017-05-13 10:15 | PN ---
Progress Note (short form) - Note Progress Note: Neurology History of Present Illness: Patient is a 56 year old male with history of alcohl abuse, DM2, HTN, HLD currently undergoing detoxification treatment for alcohol abuse at [facility] who was sent to ED c/o right sided numbness and difficulty walking. Patient claims these symptoms are new and have been getting worse for the last three days while he has been in rehab. Patient has been refusing librium because he feels this is causing his symptoms. Endorses feeling unstable and weak on his right side but CT head without acute changes. During my evaluation, possessed full strength without deficits. Seemed to be frustrated by "some pill they were trying to give me at [facility]". The patient completed MRI brain which I reviewed in detail and showed no acute changes. Carotid Doppler also completed and reviewed with no HD significant stenosis noted. Patient stable overnight. NO new complaints. Discharge planning for today. SPoke to patient about clinical course and patient does report improvement in symptoms. Active Medications Amlodipine Besylate (Norvasc -) 5 mg PO DAILY [facility] Last Admin: 05/13/17 09:34 Dose: 5 mg Aripiprazole (Abilify) 10 mg PO DAILY [facility] Last Admin: 05/13/17 09:47 Dose: 10 mg Cefuroxime Axetil (Ceftin -) 500 mg PO BID [facility] Last Admin: 05/13/17 09:33 Dose: 500 mg Insulin Aspart (Novolog Vial Sliding Scale -) 1 vial SQ ACHS [facility] PRN Reason: Protocol Last Admin: 05/13/17 06:56 Dose: 2 units Lisinopril (Prinivil) 5 mg PO DAILY [facility] Last Admin: 05/13/17 09:34 Dose: 5 mg Lorazepam (Ativan -) 2 mg PO Q8H PRN PRN Reason: ANXIETY Last Admin: 05/13/17 09:52 Dose: 2 mg Lorazepam (Ativan -) 2 mg PO HS PRN PRN Reason: INSOMNIA Quetiapine Fumarate (Seroquel -) 200 mg PO HS [facility] Last Admin: 05/13/17 00:23 Dose: Not Given Sitagliptin Phosphate (Januvia -) 50 mg PO DAILY@0700 [facility] Last Admin: 05/13/17 06:57 Dose: 50 mg Physical Examination Vital Signs Temperature 98.2 F 05/13/17 08:29 Pulse Rate 82 05/13/17 08:29 Respiratory Rate 20 05/13/17 08:29 Blood Pressure 135/83 05/13/17 08:29 O2 Sat by Pulse Oximetry (%) 97 05/13/17 06:00 Constitutional: Yes: Calm, Thin Cardiovascular: Yes: Regular Rate and Rhythm, S1, S2 Respiratory: Yes: CTA Bilaterally Gastrointestinal: Yes: Normal Bowel Sounds, Soft Edema: No Neuro: No aphasia, CN grossly intact, RUE, RLE 5-/5 on full effort, sensory intact, finger to nose normal, gait deferred Psychiatric: Yes: Alert, Oriented CBCD WBC 8.0 K/mm3 (4.0-10.0) 05/12/17 06:05 RBC 5.42 M/mm3 (4.00-5.60) 05/12/17 06:05 Hgb 13.3 GM/dL (11.7-16.9) 05/12/17 06:05 Hct 42.6 % (35.4-49) 05/12/17 06:05 MCV 78.5 fl (80-96) L 05/12/17 06:05 MCHC 31.3 g/dl (32.0-35.9) L 05/12/17 06:05 RDW 16.0 % (11.9-15.9) H 05/12/17 06:05 Plt Count 250 K/MM3 (134-434) 05/12/17 06:05 MPV 9.5 fl (7.5-11.1) 05/12/17 06:05 CMP Sodium 140 mmol/L (136-145) 05/12/17 06:05 Potassium 3.9 mmol/L (3.5-5.1) 05/12/17 06:05 Chloride 104 mmol/L (98-107) 05/12/17 06:05 Carbon Dioxide 26 mmol/L (21-32) 05/12/17 06:05 Anion Gap 10 (8-16) 05/12/17 06:05 BUN 10 mg/dL (7-18) 05/12/17 06:05 Creatinine 0.7 mg/dL (0.7-1.3) D 05/12/17 06:05 Creat Clearance w eGFR > 60 (>60) 05/12/17 06:05 Calcium 8.9 mg/dL (8.5-10.1) 05/12/17 06:05 Total Bilirubin 0.4 mg/dL (0.2-1.0) 05/12/17 06:05 AST 17 U/L (15-37) D 05/12/17 06:05 ALT 26 U/L (12-78) D 05/12/17 06:05 Alkaline Phosphatase 117 U/L (45-117) 05/12/17 06:05 Total Protein 7.0 g/dl (6.4-8.2) 05/12/17 06:05 Albumin 3.4 g/dl (3.4-5.0) 05/12/17 06:05 - RADIOLOGY CT/HEAD CT WITHOUT CONTRAST MRI brain reviewed CD reviewed Plan: 56 year old male with history of alcohl abuse, DM2, HTN, HLD currently undergoing detoxification treatment for alcohol abuse at [facility] who was sent to ED c/o right sided numbness and difficulty walking. Patient claims these symptoms are new and have been getting worse for the last three days while he has been in rehab. Patient has been refusing librium because he feels this is causing his symptoms. Endorses feeling unstable and weak on his right side but CT head without acute changes. During my evaluation, possessed full strength without deficits. Seemed to be frustrated by "some pill they were trying to give me at [facility]". MRI brain reviewed and no acute changes CD also reviewed and no HD stenosis Multivitamin, thiamine Tight glycemic control Continue ASA 81mg Monitor BP, goal < 140/90 Continue Lisinopril, norvasc Cardiology consulted Continue Statin, goal LDL <100 Physcial therapy ordered Fall precautions For discharge
--- NOTE | 2017-05-13 12:25 | PN ---
Progress Note, Physician Chief Complaint: Tele: sinus with no events Still with complaint of right sided weakness - Current Medication List Current Medications: Active Medications Amlodipine Besylate (Norvasc -) 5 mg PO DAILY [facility] Last Admin: 05/13/17 09:34 Dose: 5 mg Aripiprazole (Abilify) 10 mg PO DAILY [facility] Last Admin: 05/13/17 09:47 Dose: 10 mg Cefuroxime Axetil (Ceftin -) 500 mg PO BID [facility] Last Admin: 05/13/17 09:33 Dose: 500 mg Insulin Aspart (Novolog Vial Sliding Scale -) 1 vial SQ ACHS [facility] PRN Reason: Protocol Last Admin: 05/13/17 12:07 Dose: 4 units Lisinopril (Prinivil) 5 mg PO DAILY [facility] Last Admin: 05/13/17 09:34 Dose: 5 mg Lorazepam (Ativan -) 2 mg PO Q8H PRN PRN Reason: ANXIETY Last Admin: 05/13/17 09:52 Dose: 2 mg Lorazepam (Ativan -) 2 mg PO HS PRN PRN Reason: INSOMNIA Quetiapine Fumarate (Seroquel -) 200 mg PO HS [facility] Last Admin: 05/13/17 00:23 Dose: Not Given Sitagliptin Phosphate (Januvia -) 50 mg PO DAILY@0700 [facility] Last Admin: 05/13/17 06:57 Dose: 50 mg - Objective Vital Signs: Vital Signs Temperature 98.2 F 05/13/17 10:00 Pulse Rate 82 05/13/17 10:00 Respiratory Rate 20 05/13/17 10:00 Blood Pressure 135/83 05/13/17 10:00 O2 Sat by Pulse Oximetry (%) 97 05/13/17 10:00 Neck: Yes: Supple Cardiovascular: Yes: Regular Rate and Rhythm, S1, S2. No: Bruit, JVD Respiratory: Yes: CTA Bilaterally Gastrointestinal: Yes: Normal Bowel Sounds, Soft Edema: No Labs: CBC, BMP 05/12/17 06:05 05/12/17 06:05 INR, PTT INR 0.96 (0.82-1.09) 05/11/17 13:45 Problem List - Problems (1) Dizziness Code(s): R42 - DIZZINESS AND GIDDINESS Assessment/Plan 56 year old male with a pmhx of dm, htn, hld, and etoh abuse undergoing detoxification treatment and sent to ER with c/o right sided numbness and weakness and difficulty walking. Also c/o dizzines. Symptoms for 2 weeks but worse in rehab. No chest pain, dyspnea, or palpitations. No pnd or orthopnea. No edema 1) Cardiac/dizziness -EKG with sinus rhythm with RSR and no acute st changes Carotid duplex with no stenosis CT head and MRI no acute m/s/b Tele: uneventful at this time. Plan for Echocardiogram -F/u with neurology if any other work up needed. Thiamine/folate 2) HTN Restarted home meds 3) Hld -statin Please call with any questions. Will sign off at this time.
== END 2017-05-13 14:18 | disposition short-term general hospital (02) | DRG 47 ==
LOC: JER 11:49 → JERBED 15:38 → J4W 18:02
PROVIDERS: ADMIT Student in an Organized Health Care Education/Training Program; ATTEND Student in an Organized Health Care Education/Training Program
DX: G45.9 Transient cerebral ischemic attack, unspecified (principal); R53.1 Weakness; F10.230 Alcohol dependence with withdrawal, uncomplicated; R42 Dizziness and giddiness; E11.9 Type 2 diabetes mellitus without complications; I10 Essential (primary) hypertension; E78.5 Hyperlipidemia, unspecified; F17.210 Nicotine dependence, cigarettes, uncomplicated; Z79.84 Long term (current) use of oral hypoglycemic drugs; F14.20 Cocaine dependence, uncomplicated; F20.3 Undifferentiated schizophrenia
CPT/HCPCS: 36415; 70450-TC; 70551-TC; 71010-TC; 80053; 80061; 81003; 82465; 82550; 83036; 83718; 83721; 84478; 84484; 85025; 85610; 86850; 86900; 86901; 90688; 93005; 93010; 93306-TC; 93880-TC; 97116-GP; 97161-GP; 99285-25; G0008

== ENCOUNTER 2017-05-13 16:58 | Inpatient (IN) | payer OTHER ==
[2017-05-13 19:24] VITALS: BMI 25.9
[2017-05-13] MEDS ORDERED: P-EPHED 60MG/TRIPROLIDI 2.5MG TABLET PO PRN (21:33)
[2017-05-13] MEDS ORDERED: guaiFENesin/D-METHORPHAN HB 10 ML UNIT-DOSE CUPS PO PRN (21:33)
[2017-05-13] MEDS ORDERED: IBUPROFEN 400 MG TABLET (FP) PO PRN (21:33)
[2017-05-13] MEDS ORDERED: ACETAMINOPHEN 325 MG TABLET (FP) PO PRN (21:33)
[2017-05-13] MEDS ORDERED: MAGNESIUM HYDROX 2400MG/30ML ORAL SUSPENSION 30 ML CUP PO PRN (21:33)
[2017-05-13] MEDS ORDERED: MAGNESIUM CITRATE 300 ML BOTTLE PO PRN (21:33)
[2017-05-13] MEDS ORDERED: MENTHOL/PHENOL 1 EACH UD MM PRN (21:33)
[2017-05-13] MEDS ORDERED: LOPERAMIDE HCL 2 MG CAPSULE PO PRN (21:33)
[2017-05-13] MEDS ORDERED: hydrOXYzine PAMOATE 50 MG CAPSULE (FP) PO PRN (21:33)
[2017-05-13] MEDS ORDERED: MAG HYDROX/AL HYDROX/SIMETH 30 ML UNIT-DOSE CUP PO PRN (21:33)
[2017-05-13] MEDS ORDERED: NICOTINE POLACRILEX 2 MG GUM BUC PRN (21:33)
--- NOTE | 2017-05-13 21:33 | HP ---
[facility] Rehab Assess/Revision - Admission History Admitted to Rehab from: Medical/Surgical ([facility] TO TELE/[facility]) Date of Admission to Rehab: 05/13/2017 - Vital signs Vital Signs: Vital Signs Period Temp Pulse Resp BP Sys/Cabrera Pulse Ox Last 24 Hr 98.8 F 95 18 140/100 - Findings Detox History & Physical reviewed: Yes Concur with findings: Yes Comments/Additional Findings: MEDICALLY CLEARED BY [facility] AFTER HOSPITAL STAY Inpatient Rehab Admission - Initial Determination Are CD services needed?: Yes Free of communicable disease: Yes Not in need of hospitalization: Yes - Rehab Admission Criteria Previous failed treatment: Yes Poor recovery environment: Yes Comorbidities: Yes Lacks judgement: Yes Patient is meeting Inpatient Rehab admission criteria:: Yes
[2017-05-13] MEDS: ATORVASTATIN CA 80 MG TABLET (FP) PO SCH (23:13)
[2017-05-13] MEDS: THIAMINE HCL 100 MG TABLET (FP) PO SCH (23:13)
[2017-05-14 01:46] LABS: URINE APPEARANCE CLEAR; URINE BILIRUBIN NEGATIVE (NEGATIVE); URINE BLOOD NEGATIVE (NEGATIVE); URINE COLOR STRAW; URINE GLUCOSE (UA) 3+ (NEGATIVE); URINE KETONE NEGATIVE (NEGATIVE); URINE NITRITE NEGATIVE (NEGATIVE); URINE PROTEIN NEGATIVE (NEGATIVE); URINE UROBILINOGEN NEGATIVE mg/dL (0.2-1.0)
[2017-05-14] MEDS: metFORMIN HCL 500 MG TABLET (FP) PO SCH ×2 (06:12→17:07)
[2017-05-14] MEDS: INSULIN SLIDING SCALE (NOVOLOG) 1 VIAL SQ SCH ×2 (06:15→17:07)
[2017-05-14] MEDS ORDERED: INSULIN (NOVOLOG) ASPART 100 UNITS/ML 10ML VIAL ONE (07:10)
[2017-05-14 09:27] LABS: URINE LEUK ESTERASE Negative (NEGATIVE)
[2017-05-14] MEDS: ASPIRIN 81 MG CHEWABLE TABLETS PO SCH (09:46)
[2017-05-14] MEDS: amLODIPine BESYLATE 5 MG TABLET (FP) PO SCH (09:46)
[2017-05-14] MEDS: LISINOPRIL 5 MG TABLET (FP) PO SCH (09:46)
[2017-05-14] MEDS: PRENATAL VITAMINS W/ FOLIC ACID TABLET (FP) PO SCH (09:47)
[2017-05-14] MEDS: NICOTINE 14 MG/24 HOURS TOPICAL PATCH TD SCH (09:47)
[2017-05-14] MEDS ORDERED: cloNIDine HCL 0.1 MG TABLET PO ONE (11:50)
--- NOTE | 2017-05-14 13:52 | HP ---
Psychiatrist Admission - Data Date of interview: 05/14/17 Admission source: [facility] Identifying data: This is the second inpatient rehabilitation admission for this 56 year old single AA male, unemployed on SSI and currently homeless. 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 smokes 5 cigarettes a day. Psychiatric History: Patient reports carries a diagnosis of Schizoaphrenia, first psychiatric contact at age of 21, for auditory hallucinations and depressed mood, reorts several subsequent hospictalizations mostly at [facility] with most recent in 2012 for auditory halucinations,, he gets OPD psychiatric services at [facility] , he reports he is on Abilify 10 mg po daily, Seroquel 200 mg po hs, Doxepin 25 mg po hs. He denies history of suicidal attempts, stated he hears voices at nights "they just calling my name, I used to hear, they don't bother me". Patient was seen by while at [facility] and continued medicatioen. Physical/Sexual Abuse/Trauma History: Denies history of abuse. Vital Signs: Vital Signs - 24 hr 05/13/17 05/14/17 19:22 07:25 Temperature 98.8 F 98.2 F Pulse Rate 95 H 108 H Respiratory 18 16 Rate Blood Pressure 140/100 121/96 Allergies/Adverse Reactions: Allergies Allergy/AdvReac Type Severity Reaction Status Date / Time No Known Allergies Allergy Verified 05/13/17 22:24 Date of last physical exam: 05/09/17 Concur with the findings of this exam: Yes - Substance Abuse/Tx History Hx Alcohol Use: Yes (beer 1(6packs)) Hx Substance Use: Yes Substance Use Type: Alcohol (started at age of 21), Cocaine (started at age of 21, smokes 1 gr 2-3 a week ) Hx Substance Use Treatment: Yes Mental Status Exam - Mental Status Exam Alert and Oriented to: Time, Place, Person Cognitive Function: Good Patient Appearance: Well Groomed Mood: Hopeful Affect: Appropriate, Mood Congruent, Normal Range Patient Behavior: Appropriate, Cooperative Speech Pattern: Clear, Appropriate Voice Loudness: Normal Thought Process: Intact, Goal Oriented Thought Disorder: Not Present Hallucinations: Auditory Suicidal Ideation: Denies Homicidal Ideation: Denies Insight/Judgement: Good Sleep: Fair Appetite: Fair Muscle strength/Tone: Normal Gait/Station: Normal Psychiatric Findings - Problem List ([place] 1, 2,3) (1) Cocaine dependence Current Visit: No Status: Acute Qualifiers: Substance use status: uncomplicated Qualified Code(s): F14.20 - Cocaine dependence, uncomplicated; F14.20 - Cocaine dependence, uncomplicated; F14.20 - Cocaine dependence, uncomplicated (2) Diabetes mellitus Current Visit: No Status: Chronic (3) Hyperlipidemia Current Visit: No Status: Chronic Qualifiers: Comment: NO TREATMENT (4) Hypertension Current Visit: No Status: Chronic Qualifiers: Comment: LISINOPRIL NORVASC (5) Nicotine dependence Current Visit: No Status: Chronic Qualifiers: (6) Schizophrenia Current Visit: No Status: Chronic Qualifiers: Schizophrenia type: undifferentiated schizophrenia Qualified Code(s) : F20.3 - Undifferentiated schizophrenia; F20.3 - Undifferentiated schizophrenia ; F20.3 - Undifferentiated schizophrenia; F20.3 - Undifferentiated schizophrenia (7) Use of cane as ambulatory aid Current Visit: No Status: Chronic (8) Alcohol dependence Current Visit: Yes Status: Acute - Initial Treatment Plan Initial Treatment Plan: will continue Abilify and Seroquel, monitor progress as needed.
[2017-05-14] MEDS: diphenhydrAMINE HCL 50 MG CAPSULE PO PRN (21:06)
[2017-05-14] MEDS: THIAMINE HCL 100 MG TABLET (FP) PO SCH (21:06)
[2017-05-14] MEDS: QUEtiapine FUMARATE 200 MG TABLET PO SCH (21:06)
[2017-05-14] MEDS: ATORVASTATIN CA 80 MG TABLET (FP) PO SCH (21:06)
[2017-05-15] MEDS: INSULIN SLIDING SCALE (NOVOLOG) 1 VIAL SQ SCH ×2 (06:27→17:05)
[2017-05-15] MEDS: metFORMIN HCL 500 MG TABLET (FP) PO SCH ×2 (06:27→17:05)
[2017-05-15] MEDS ORDERED: INSULIN (NOVOLOG) ASPART 100 UNITS/ML 10ML VIAL ONE ×2 (07:09→17:26)
[2017-05-15] MEDS: PRENATAL VITAMINS W/ FOLIC ACID TABLET (FP) PO SCH (10:09)
[2017-05-15] MEDS: amLODIPine BESYLATE 5 MG TABLET (FP) PO SCH (10:09)
[2017-05-15] MEDS: ARIPiprazole 10 MG TABLET PO SCH (10:09)
[2017-05-15] MEDS: ASPIRIN 81 MG CHEWABLE TABLETS PO SCH (10:09)
[2017-05-15] MEDS: NICOTINE 14 MG/24 HOURS TOPICAL PATCH TD SCH (10:10)
[2017-05-15] MEDS: LISINOPRIL 5 MG TABLET (FP) PO SCH (10:10)
[2017-05-15] MEDS: THIAMINE HCL 100 MG TABLET (FP) PO SCH (21:04)
[2017-05-15] MEDS: QUEtiapine FUMARATE 200 MG TABLET PO SCH (21:04)
[2017-05-15] MEDS: diphenhydrAMINE HCL 50 MG CAPSULE PO PRN (21:04)
[2017-05-15] MEDS: ATORVASTATIN CA 80 MG TABLET (FP) PO SCH (21:04)
[2017-05-16] MEDS: INSULIN SLIDING SCALE (NOVOLOG) 1 VIAL SQ SCH ×2 (06:35→16:44)
[2017-05-16] MEDS: metFORMIN HCL 500 MG TABLET (FP) PO SCH ×2 (06:35→16:44)
[2017-05-16] MEDS ORDERED: INSULIN (NOVOLOG) ASPART 100 UNITS/ML 10ML VIAL ONE ×2 (07:18→17:53)
[2017-05-16] MEDS: amLODIPine BESYLATE 5 MG TABLET (FP) PO SCH (09:55)
[2017-05-16] MEDS: ARIPiprazole 10 MG TABLET PO SCH (09:55)
[2017-05-16] MEDS: LISINOPRIL 5 MG TABLET (FP) PO SCH (09:55)
[2017-05-16] MEDS: ASPIRIN 81 MG CHEWABLE TABLETS PO SCH (09:55)
[2017-05-16] MEDS: PRENATAL VITAMINS W/ FOLIC ACID TABLET (FP) PO SCH (09:56)
[2017-05-16] MEDS: NICOTINE 14 MG/24 HOURS TOPICAL PATCH TD SCH (09:56)
[2017-05-16] MEDS: THIAMINE HCL 100 MG TABLET (FP) PO SCH (21:04)
[2017-05-16] MEDS: QUEtiapine FUMARATE 200 MG TABLET PO SCH (21:04)
[2017-05-16] MEDS: ATORVASTATIN CA 80 MG TABLET (FP) PO SCH (21:04)
[2017-05-16] MEDS: diphenhydrAMINE HCL 50 MG CAPSULE PO PRN (21:04)
[2017-05-17] MEDS: INSULIN SLIDING SCALE (NOVOLOG) 1 VIAL SQ SCH ×2 (06:06→16:35)
[2017-05-17] MEDS ORDERED: INSULIN (NOVOLOG) ASPART 100 UNITS/ML 10ML VIAL ONE ×2 (06:39→16:33)
[2017-05-17] MEDS: metFORMIN HCL 500 MG TABLET (FP) PO SCH ×2 (06:47→16:34)
[2017-05-17] MEDS: ARIPiprazole 10 MG TABLET PO SCH (09:33)
[2017-05-17] MEDS: LISINOPRIL 5 MG TABLET (FP) PO SCH (09:33)
[2017-05-17] MEDS: ASPIRIN 81 MG CHEWABLE TABLETS PO SCH (09:33)
[2017-05-17] MEDS: PRENATAL VITAMINS W/ FOLIC ACID TABLET (FP) PO SCH (09:33)
[2017-05-17] MEDS: amLODIPine BESYLATE 5 MG TABLET (FP) PO SCH (09:33)
[2017-05-17] MEDS: NICOTINE 14 MG/24 HOURS TOPICAL PATCH TD SCH (09:33)
[2017-05-17] MEDS: QUEtiapine FUMARATE 200 MG TABLET PO SCH (21:08)
[2017-05-17] MEDS: THIAMINE HCL 100 MG TABLET (FP) PO SCH (21:08)
[2017-05-17] MEDS: diphenhydrAMINE HCL 50 MG CAPSULE PO PRN (21:08)
[2017-05-17] MEDS: ATORVASTATIN CA 80 MG TABLET (FP) PO SCH (21:08)
[2017-05-18] MEDS ORDERED: INSULIN (NOVOLOG) ASPART 100 UNITS/ML 10ML VIAL ONE ×2 (07:33→16:40)
[2017-05-18] MEDS: INSULIN SLIDING SCALE (NOVOLOG) 1 VIAL SQ SCH ×2 (07:42→16:41)
[2017-05-18] MEDS: metFORMIN HCL 500 MG TABLET (FP) PO SCH ×2 (07:42→16:38)
[2017-05-18] MEDS: ASPIRIN 81 MG CHEWABLE TABLETS PO SCH (09:21)
[2017-05-18] MEDS: NICOTINE 14 MG/24 HOURS TOPICAL PATCH TD SCH (09:22)
[2017-05-18] MEDS: amLODIPine BESYLATE 5 MG TABLET (FP) PO SCH (09:22)
[2017-05-18] MEDS: LISINOPRIL 5 MG TABLET (FP) PO SCH (09:22)
[2017-05-18] MEDS: ARIPiprazole 10 MG TABLET PO SCH (09:22)
[2017-05-18] MEDS: PRENATAL VITAMINS W/ FOLIC ACID TABLET (FP) PO SCH (09:43)
[2017-05-18] MEDS: THIAMINE HCL 100 MG TABLET (FP) PO SCH (21:03)
[2017-05-18] MEDS: ATORVASTATIN CA 80 MG TABLET (FP) PO SCH (21:03)
[2017-05-18] MEDS: QUEtiapine FUMARATE 200 MG TABLET PO SCH (21:03)
[2017-05-18] MEDS: diphenhydrAMINE HCL 50 MG CAPSULE PO PRN (21:04)
[2017-05-19] MEDS: metFORMIN HCL 500 MG TABLET (FP) PO SCH ×2 (06:52→16:40)
[2017-05-19] MEDS ORDERED: INSULIN (NOVOLOG) ASPART 100 UNITS/ML 10ML VIAL ONE ×2 (06:53→16:48)
[2017-05-19] MEDS: INSULIN SLIDING SCALE (NOVOLOG) 1 VIAL SQ SCH ×2 (06:54→16:41)
[2017-05-19] MEDS: LISINOPRIL 5 MG TABLET (FP) PO SCH (09:55)
[2017-05-19] MEDS: ASPIRIN 81 MG CHEWABLE TABLETS PO SCH (09:55)
[2017-05-19] MEDS: ARIPiprazole 10 MG TABLET PO SCH (09:56)
[2017-05-19] MEDS: amLODIPine BESYLATE 5 MG TABLET (FP) PO SCH (09:56)
[2017-05-19] MEDS: PRENATAL VITAMINS W/ FOLIC ACID TABLET (FP) PO SCH (09:56)
[2017-05-19] MEDS: NICOTINE 14 MG/24 HOURS TOPICAL PATCH TD SCH (09:56)
[2017-05-19] MEDS: ATORVASTATIN CA 80 MG TABLET (FP) PO SCH (21:03)
[2017-05-19] MEDS: THIAMINE HCL 100 MG TABLET (FP) PO SCH (21:03)
[2017-05-19] MEDS: diphenhydrAMINE HCL 50 MG CAPSULE PO PRN (21:03)
[2017-05-19] MEDS: QUEtiapine FUMARATE 200 MG TABLET PO SCH (21:03)
[2017-05-20] MEDS: metFORMIN HCL 500 MG TABLET (FP) PO SCH ×2 (06:14→16:46)
[2017-05-20] MEDS: INSULIN SLIDING SCALE (NOVOLOG) 1 VIAL SQ SCH ×2 (06:15→16:48)
[2017-05-20] MEDS ORDERED: INSULIN (NOVOLOG) ASPART 100 UNITS/ML 10ML VIAL ONE (06:37)
[2017-05-20] MEDS: PRENATAL VITAMINS W/ FOLIC ACID TABLET (FP) PO SCH (09:26)
[2017-05-20] MEDS: amLODIPine BESYLATE 5 MG TABLET (FP) PO SCH (09:26)
[2017-05-20] MEDS: ASPIRIN 81 MG CHEWABLE TABLETS PO SCH (09:26)
[2017-05-20] MEDS: NICOTINE 14 MG/24 HOURS TOPICAL PATCH TD SCH (09:26)
[2017-05-20] MEDS: LISINOPRIL 5 MG TABLET (FP) PO SCH (09:26)
[2017-05-20] MEDS: ARIPiprazole 10 MG TABLET PO SCH (09:26)
[2017-05-20] MEDS: QUEtiapine FUMARATE 200 MG TABLET PO SCH (21:00)
[2017-05-20] MEDS: ATORVASTATIN CA 80 MG TABLET (FP) PO SCH (21:00)
[2017-05-20] MEDS: THIAMINE HCL 100 MG TABLET (FP) PO SCH (21:00)
[2017-05-20] MEDS: diphenhydrAMINE HCL 50 MG CAPSULE PO PRN (21:01)
[2017-05-21] MEDS: metFORMIN HCL 500 MG TABLET (FP) PO SCH ×2 (06:20→16:57)
[2017-05-21] MEDS ORDERED: INSULIN (NOVOLOG) ASPART 100 UNITS/ML 10ML VIAL ONE ×2 (07:08→17:02)
[2017-05-21] MEDS: INSULIN SLIDING SCALE (NOVOLOG) 1 VIAL SQ SCH ×2 (07:40→16:58)
[2017-05-21] MEDS: LISINOPRIL 5 MG TABLET (FP) PO SCH (09:51)
[2017-05-21] MEDS: amLODIPine BESYLATE 5 MG TABLET (FP) PO SCH (09:51)
[2017-05-21] MEDS: PRENATAL VITAMINS W/ FOLIC ACID TABLET (FP) PO SCH (09:51)
[2017-05-21] MEDS: NICOTINE 14 MG/24 HOURS TOPICAL PATCH TD SCH (09:52)
[2017-05-21] MEDS: ARIPiprazole 10 MG TABLET PO SCH (09:52)
[2017-05-21] MEDS: ASPIRIN 81 MG CHEWABLE TABLETS PO SCH (09:52)
[2017-05-21] MEDS: ATORVASTATIN CA 80 MG TABLET (FP) PO SCH (21:05)
[2017-05-21] MEDS: THIAMINE HCL 100 MG TABLET (FP) PO SCH (21:05)
[2017-05-21] MEDS: QUEtiapine FUMARATE 200 MG TABLET PO SCH (21:05)
[2017-05-21] MEDS: diphenhydrAMINE HCL 50 MG CAPSULE PO PRN (21:06)
[2017-05-22] MEDS ORDERED: INSULIN (NOVOLOG) ASPART 100 UNITS/ML 10ML VIAL ONE ×2 (06:57→17:11)
[2017-05-22] MEDS: metFORMIN HCL 500 MG TABLET (FP) PO SCH ×2 (06:58→16:52)
[2017-05-22] MEDS: INSULIN SLIDING SCALE (NOVOLOG) 1 VIAL SQ SCH ×2 (06:59→16:55)
[2017-05-22] MEDS: ASPIRIN 81 MG CHEWABLE TABLETS PO SCH (09:31)
[2017-05-22] MEDS: PRENATAL VITAMINS W/ FOLIC ACID TABLET (FP) PO SCH (09:31)
[2017-05-22] MEDS: amLODIPine BESYLATE 5 MG TABLET (FP) PO SCH (09:31)
[2017-05-22] MEDS: LISINOPRIL 5 MG TABLET (FP) PO SCH (09:31)
[2017-05-22] MEDS: NICOTINE 14 MG/24 HOURS TOPICAL PATCH TD SCH (09:32)
[2017-05-22] MEDS: ARIPiprazole 10 MG TABLET PO SCH (09:32)
[2017-05-22] MEDS: ATORVASTATIN CA 80 MG TABLET (FP) PO SCH (21:01)
[2017-05-22] MEDS: THIAMINE HCL 100 MG TABLET (FP) PO SCH (21:01)
[2017-05-22] MEDS: QUEtiapine FUMARATE 200 MG TABLET PO SCH (21:01)
[2017-05-22] MEDS: diphenhydrAMINE HCL 50 MG CAPSULE PO PRN (21:02)
[2017-05-23] MEDS: metFORMIN HCL 500 MG TABLET (FP) PO SCH ×2 (06:10→16:46)
[2017-05-23] MEDS: INSULIN SLIDING SCALE (NOVOLOG) 1 VIAL SQ SCH ×2 (06:57→16:48)
[2017-05-23] MEDS ORDERED: INSULIN (NOVOLOG) ASPART 100 UNITS/ML 10ML VIAL ONE ×2 (07:06→18:24)
[2017-05-23] MEDS: ARIPiprazole 10 MG TABLET PO SCH (09:55)
[2017-05-23] MEDS: amLODIPine BESYLATE 5 MG TABLET (FP) PO SCH (09:55)
[2017-05-23] MEDS: LISINOPRIL 5 MG TABLET (FP) PO SCH (09:55)
[2017-05-23] MEDS: PRENATAL VITAMINS W/ FOLIC ACID TABLET (FP) PO SCH (09:55)
[2017-05-23] MEDS: NICOTINE 14 MG/24 HOURS TOPICAL PATCH TD SCH (09:55)
[2017-05-23] MEDS: ASPIRIN 81 MG CHEWABLE TABLETS PO SCH (09:55)
[2017-05-23] MEDS: QUEtiapine FUMARATE 200 MG TABLET PO SCH (21:02)
[2017-05-23] MEDS: ATORVASTATIN CA 80 MG TABLET (FP) PO SCH (21:02)
[2017-05-23] MEDS: THIAMINE HCL 100 MG TABLET (FP) PO SCH (21:02)
[2017-05-23] MEDS: diphenhydrAMINE HCL 50 MG CAPSULE PO PRN (21:02)
[2017-05-24] MEDS: metFORMIN HCL 500 MG TABLET (FP) PO SCH ×2 (06:05→16:54)
[2017-05-24] MEDS: INSULIN SLIDING SCALE (NOVOLOG) 1 VIAL SQ SCH ×2 (06:05→16:54)
[2017-05-24] MEDS ORDERED: INSULIN (NOVOLOG) ASPART 100 UNITS/ML 10ML VIAL ONE (06:51)
[2017-05-24] MEDS: ASPIRIN 81 MG CHEWABLE TABLETS PO SCH (09:53)
[2017-05-24] MEDS: amLODIPine BESYLATE 5 MG TABLET (FP) PO SCH (09:53)
[2017-05-24] MEDS: PRENATAL VITAMINS W/ FOLIC ACID TABLET (FP) PO SCH (09:53)
[2017-05-24] MEDS: LISINOPRIL 5 MG TABLET (FP) PO SCH (09:53)
[2017-05-24] MEDS: NICOTINE 14 MG/24 HOURS TOPICAL PATCH TD SCH (09:54)
[2017-05-24] MEDS: ARIPiprazole 10 MG TABLET PO SCH (10:48)
[2017-05-24] MEDS: THIAMINE HCL 100 MG TABLET (FP) PO SCH (20:59)
[2017-05-24] MEDS: QUEtiapine FUMARATE 200 MG TABLET PO SCH (20:59)
[2017-05-24] MEDS: ATORVASTATIN CA 80 MG TABLET (FP) PO SCH (20:59)
[2017-05-24] MEDS: diphenhydrAMINE HCL 50 MG CAPSULE PO PRN (21:00)
[2017-05-25] MEDS ORDERED: INSULIN (NOVOLOG) ASPART 100 UNITS/ML 10ML VIAL ONE ×3 (03:07→16:51)
[2017-05-25] MEDS: metFORMIN HCL 500 MG TABLET (FP) PO SCH ×2 (06:33→16:46)
[2017-05-25] MEDS: INSULIN SLIDING SCALE (NOVOLOG) 1 VIAL SQ SCH ×2 (06:34→16:46)
[2017-05-25] MEDS: ASPIRIN 81 MG CHEWABLE TABLETS PO SCH (09:51)
[2017-05-25] MEDS: amLODIPine BESYLATE 5 MG TABLET (FP) PO SCH (09:51)
[2017-05-25] MEDS: LISINOPRIL 5 MG TABLET (FP) PO SCH (09:51)
[2017-05-25] MEDS: NICOTINE 14 MG/24 HOURS TOPICAL PATCH TD SCH (09:52)
[2017-05-25] MEDS: PRENATAL VITAMINS W/ FOLIC ACID TABLET (FP) PO SCH (09:52)
[2017-05-25] MEDS: ARIPiprazole 10 MG TABLET PO SCH (09:53)
[2017-05-25] MEDS ORDERED: diphenhydrAMINE HCL 25 MG CAPSULE (FP) PO ONE (21:01)
[2017-05-25] MEDS: QUEtiapine FUMARATE 200 MG TABLET PO SCH (21:04)
[2017-05-25] MEDS: ATORVASTATIN CA 80 MG TABLET (FP) PO SCH (21:04)
[2017-05-25] MEDS: THIAMINE HCL 100 MG TABLET (FP) PO SCH (21:04)
[2017-05-25] MEDS: diphenhydrAMINE HCL 50 MG CAPSULE PO PRN (21:05)
[2017-05-26] MEDS: metFORMIN HCL 500 MG TABLET (FP) PO SCH ×2 (06:09→16:58)
[2017-05-26] MEDS: INSULIN SLIDING SCALE (NOVOLOG) 1 VIAL SQ SCH ×2 (06:09→16:58)
[2017-05-26] MEDS ORDERED: INSULIN (NOVOLOG) ASPART 100 UNITS/ML 10ML VIAL ONE ×2 (06:40→16:59)
[2017-05-26] MEDS: ASPIRIN 81 MG CHEWABLE TABLETS PO SCH (09:46)
[2017-05-26] MEDS: LISINOPRIL 5 MG TABLET (FP) PO SCH (09:46)
[2017-05-26] MEDS: amLODIPine BESYLATE 5 MG TABLET (FP) PO SCH (09:46)
[2017-05-26] MEDS: NICOTINE 14 MG/24 HOURS TOPICAL PATCH TD SCH (09:47)
[2017-05-26] MEDS: ARIPiprazole 10 MG TABLET PO SCH (09:47)
[2017-05-26] MEDS: PRENATAL VITAMINS W/ FOLIC ACID TABLET (FP) PO SCH (09:47)
[2017-05-26] MEDS: ATORVASTATIN CA 80 MG TABLET (FP) PO SCH (21:12)
[2017-05-26] MEDS: THIAMINE HCL 100 MG TABLET (FP) PO SCH (21:12)
[2017-05-26] MEDS: QUEtiapine FUMARATE 200 MG TABLET PO SCH (21:12)
[2017-05-26] MEDS: diphenhydrAMINE HCL 50 MG CAPSULE PO PRN (21:12)
[2017-05-27] MEDS: INSULIN SLIDING SCALE (NOVOLOG) 1 VIAL SQ SCH (06:12)
[2017-05-27] MEDS: metFORMIN HCL 500 MG TABLET (FP) PO SCH (06:12)
[2017-05-27 06:36] VITALS: BP 121/82; PULSE 103; TEMP 98.2
[2017-05-27] MEDS ORDERED: INSULIN (NOVOLOG) ASPART 100 UNITS/ML 10ML VIAL ONE (07:30)
--- NOTE | 2017-05-27 09:26 | PN ---
Psychiatric Progress Note Vital Signs: Vital Signs Period Temp Pulse Resp BP Sys/Cabrera Pulse Ox Last 24 Hr 98.2 F 93-103 16-18 121-121/69-82 Date of Session: 05/27/17 Chief Complaint:: discharge visit HPI: Patient addressing alcohol, cocaine, nicotine dependence comorbid Schizoaffective disorder. 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 Current Medications: Active Medications Generic Name Dose Route Start Last Admin Trade Name Freq PRN Reason Stop Dose Admin Acetaminophen 650 mg 05/13/17 21:33 Tylenol - PO Q4H PRN FEVER OR PAIN Al Hydroxide/Mg Hydroxide 30 ml 05/13/17 21:33 05/19/17 17:31 Mylanta Oral Suspension - PO 30 ml Q6H PRN Administration DYSPEPSIA Amlodipine Besylate 5 mg 05/14/17 10:00 05/26/17 09:46 Norvasc - PO 5 mg DAILY MARTHA Administration Aripiprazole 10 mg 05/15/17 10:00 05/26/17 09:47 Abilify PO 10 mg DAILY MARTHA Administration Aspirin 81 mg 05/14/17 10:00 05/26/17 09:46 Asa - PO 81 mg DAILY MARTHA Administration Atorvastatin Calcium 80 mg 05/13/17 22:00 05/26/17 21:12 Lipitor - PO 80 mg HS MARTHA Administration Diphenhydramine HCl 50 mg 05/13/17 21:33 05/26/17 21:12 Benadryl - PO 50 mg HSMR1 PRN Administration FOR ITCHING Eucalyptus/Menthol/Phenol/Sorbitol 1 each 05/13/17 21:33 Cepastat Lozenge - MM Q4H PRN SORE THROAT Guaifenesin 10 ml 05/13/17 21:33 Robitussin Dm - PO Q6H PRN COUGH Hydroxyzine Pamoate 50 mg 05/13/17 21:33 Vistaril - PO Q4H PRN AGITATION Ibuprofen 400 mg 05/13/17 21:33 Motrin - PO Q6H PRN PAIN Insulin Aspart 1 vial 05/14/17 07:00 05/27/17 06:12 Novolog Vial Sliding Scale - SQ 4 units BIDAC MARTHA Administration Protocol Lisinopril 5 mg 05/14/17 10:00 05/26/17 09:46 Prinivil PO 5 mg DAILY MARTHA Administration Loperamide HCl 4 mg 05/13/17 21:33 Imodium - PO Q6H PRN DIARRHEA Magnesium Hydroxide 30 ml 05/13/17 21:33 Milk Of Magnesia - PO DAILY PRN CONSTIPATION Metformin HCl 500 mg 05/14/17 07:00 05/27/17 06:12 Glucophage - PO 500 mg BID@0700,1630 MARTHA Administration Nicotine 14 mg 05/14/17 10:00 05/26/17 09:47 Nicoderm Patch - TD Not Given DAILY MARTHA Nicotine Polacrilex 2 mg 05/13/17 21:33 Nicorette Gum - BUC Q2H PRN NICOTINE REPLACEMENT RX Multivit/Folic Acid/Iron 1 tab 05/14/17 10:00 05/26/17 09:47 Vitamins (Sjr) - PO 1 tab DAILY MARTHA Administration Pseudoephedrine/Triprolidine 1 combo 05/13/17 21:33 Actifed - PO TID PRN NASAL CONGESTION Quetiapine Fumarate 200 mg 05/14/17 22:00 05/26/17 21:12 Seroquel - PO 200 mg HS MARTHA Administration Thiamine HCl 100 mg 05/13/17 22:00 05/26/17 21:12 Vitamin B1 - PO 100 mg HS MARTHA Administration Current Side Effect: No Lab tests ordered: No Lab tests reviewed: Yes Provider note:: Patient has completed today his treatment and mett his identified goals, will continue to address his issues at [facility] opd, he gained insights into importance to continue maintain abstience, utilize all supports to prevent relapses. Medications Serogabrielal, Abilify well tolerated, scripts provided, patient was encouraged to take medications as direceted and follow-up with his medical appointments at [facility], patient is stable for discharge today. Total face to face time:: 25 Mental Status Exam - Mental Status Exam Alert and Oriented to: Time, Place, Person Cognitive Function: Good Patient Appearance: Well Groomed Mood: Hopeful Affect: Appropriate, Mood Congruent Patient Behavior: Appropriate, Cooperative Speech Pattern: Clear, Appropriate Voice Loudness: Normal Thought Process: Intact, Goal Oriented Thought Disorder: Not Present Hallucinations: Denies Suicidal Ideation: Denies Homicidal Ideation: Denies Insight/Judgement: Fair Sleep: Fair Appetite: Fair Muscle strength/Tone: Normal Psychiatric Treatment Plan - Problem List (1) Cocaine dependence Current Visit: No Qualifiers: Substance use status: uncomplicated Qualified Code(s): F14.20 - Cocaine dependence, uncomplicated; F14.20 - Cocaine dependence, uncomplicated; F14.20 - Cocaine dependence, uncomplicated (2) Diabetes mellitus Current Visit: No (3) Hyperlipidemia Current Visit: No Qualifiers: Comment: NO TREATMENT (4) Hypertension Current Visit: No Qualifiers: Comment: LISINOPRIL NORVASC (5) Nicotine dependence Current Visit: No Qualifiers: (6) Schizophrenia Current Visit: No Qualifiers: Schizophrenia type: undifferentiated schizophrenia Qualified Code(s) : F20.3 - Undifferentiated schizophrenia; F20.3 - Undifferentiated schizophrenia ; F20.3 - Undifferentiated schizophrenia; F20.3 - Undifferentiated schizophrenia (7) Use of cane as ambulatory aid Current Visit: No (8) Alcohol dependence Current Visit: Yes
[2017-05-27] MEDS: ASPIRIN 81 MG CHEWABLE TABLETS PO SCH (09:43)
[2017-05-27] MEDS: amLODIPine BESYLATE 5 MG TABLET (FP) PO SCH (09:43)
[2017-05-27] MEDS: LISINOPRIL 5 MG TABLET (FP) PO SCH (09:43)
[2017-05-27] MEDS: PRENATAL VITAMINS W/ FOLIC ACID TABLET (FP) PO SCH (09:43)
[2017-05-27] MEDS: NICOTINE 14 MG/24 HOURS TOPICAL PATCH TD SCH (09:43)
[2017-05-27] MEDS: ARIPiprazole 10 MG TABLET PO SCH (09:44)
== END 2017-05-27 10:45 | disposition home or self-care (01) | DRG 774 ==
LOC: YASAS 16:58 → Y5N 22:22
PROVIDERS: ADMIT Psychiatry & Neurology Psychiatry; ATTEND Psychiatry & Neurology Psychiatry
PROC: HZ2ZZZZ Detoxification Services for Substance Abuse Treatment (ICD-10-PCS; principal; 2017-05-13)
DX: F10.20 Alcohol dependence, uncomplicated (principal); F14.20 Cocaine dependence, uncomplicated; F17.210 Nicotine dependence, cigarettes, uncomplicated; F20.3 Undifferentiated schizophrenia; I10 Essential (primary) hypertension; E78.5 Hyperlipidemia, unspecified; E11.9 Type 2 diabetes mellitus without complications; G62.9 Polyneuropathy, unspecified; R26.2 Difficulty in walking, not elsewhere classified; Z99.89 Dependence on other enabling machines and devices; Z86.69 Personal history of other diseases of the nervous system and sense organs; Z86.73 Personal history of transient ischemic attack (TIA), and cerebral infarction without residual deficits
CPT/HCPCS: 81003